=== PATIENT | male | born 1995 | race African-American/Black ===

== ENCOUNTER 2021-01-05 19:09 | Emergency (ER) | payer SELFPAY ==
--- NOTE | 2021-01-05 20:15 | EDPHYS ---
Physician Documentation [facility] Name: Patel Gray Age: 25 yrs Sex: Male : 1995 Arrival Date: 01/05/2021 Time: 19:12 Bed 15 Private MD: ED Physician Constantine Bueno HPI: 01/05 19:46 This 25 yrs old Black Male presents to ER via Ambulatory with complaints of Ear Pain, pm1 Decreasd hearing. 19:46 The patient presents with pain. The complaints affect the right ear. Onset: The pm1 symptoms/episode began/occurred 2 week(s) ago. Modifying factors: The symptoms are alleviated by nothing, the symptoms are aggravated by nothing. Associated signs and symptoms: Pertinent positives: decreased hearing, Pertinent negatives: fever. Severity of symptoms: in the emergency department the symptoms are unchanged. The patient has experienced a previous episode, many years ago. The patient has not recently seen a physician. Historical: - Allergies: 19:33 No Known Allergies; bb - Home Meds: 19:33 None [Active]; bb - PMHx: 19:33 ADHD; bb - PSHx: 19:33 hand surgery; bb - Immunization history:: Adult Immunizations up to date. - Social history:: Smoking status: Patient/guardian denies using tobacco, Stopped _ months ago 5. ROS: 19:46 Constitutional: Negative for fever, chills, and weight loss, Abdomen/GI: Negative for pm1 abdominal pain, nausea, vomiting, diarrhea, and constipation, Neuro: Negative for headache, weakness, numbness, tingling, and seizure. 19:46 Cardiovascular: Negative for chest pain, palpitations, and edema, Respiratory: Negative for shortness of breath, cough, wheezing, and pleuritic chest pain. 19:46 ENT: Positive for ear pain, Negative for sore throat. 19:46 All other systems are negative. Exam: 19:46 Constitutional: This is a well developed, well nourished patient who is awake, alert, pm1 and in no acute distress. Head/Face: Normocephalic, atraumatic. 19:46 Neck: Trachea midline, no thyromegaly or masses palpated, and no cervical lymphadenopathy. Supple, full range of motion without nuchal rigidity, or vertebral point tenderness. No Meningismus. 19:46 Back: No spinal tenderness. No costovertebral tenderness. Full range of motion. Skin: Warm, dry with normal turgor. Normal color with no rashes, no lesions, and no evidence of cellulitis. MS/ Extremity: Pulses equal, no cyanosis. Neurovascular intact. Full, normal range of motion. 19:46 Eyes: Exam is negative for acute changes, Extraocular movements: intact throughout, Conjunctiva: no acute changes, no injection, Sclera: icterus, is not appreciated. 19:46 ENT: External ear(s): are unremarkable, Ear canal(s): are normal, TM's: bulging, on the right, erythema, on the right, Examination of the other ear shows no obvious abnormality. 19:46 Cardiovascular: Rate: normal, Rhythm: regular, Pulses: no pulse deficits are appreciated. 19:46 Respiratory: Exam negative for acute changes, respiratory distress, shortness of breath, Breath sounds: are clear throughout. 19:46 Neuro: Exam negative for acute changes, Orientation: is normal, Mentation: is normal, Motor: is normal, moves all fours. Vital Signs: 19:31 BP 130 / 75; Pulse 100; Resp 16 S; Temp 9.6(O); Pulse Ox 97% on R/A; Weight 90.72 kg bb (R); Height 5 ft. 2 in. (157.48 cm) (R); Pain 7/10; 19:57 Temp 98.3(O); ca1 19:31 Body Mass Index 36.58 (90.72 kg, 157.48 cm) bb MDM: 19:39 Patient medically screened. pm1 20:13 Data reviewed: vital signs. Data interpreted: Pulse oximetry: on room air is 97 %. pm1 Interpretation: normal. Counseling: I had a detailed discussion with the patient and/or guardian regarding: the historical points, exam findings, and any diagnostic results supporting the discharge/admit diagnosis, the need for outpatient follow up, an ENT specialist, to return to the emergency department if symptoms worsen or persist or if there are any questions or concerns that arise at home. Administered Medications: 20:17 Drug: Rocephin (cefTRIAXone) 1 grams Route: IM; Site: left gluteus; ca1 21:06 Follow up: Response: No adverse reaction ca1 Disposition: 06/27 05:35 Co-signature as Attending Physician, Constantine Bueno MD. mh7 Disposition: 01/05/21 20:14 Discharged to Home. Impression: Otitis media, unspecified, right ear. - Condition is Stable. - Discharge Instructions: Otitis Media, Adult. - Prescriptions for Augmentin 875- 125 mg Oral Tablet - take 1 tablet by ORAL route every 12 hours for 10 days; 20 tablet. Diclofenac Sodium 75 mg Oral Tablet, Delayed Release (E.C.) - take 1 tablet by ORAL route 2 times per day As needed; 30 tablet. - Medication Reconciliation Form, Thank You Letter, Antibiotic Education, Prescription Opioid Use form. - Follow up: Emergency Department; When: As needed; Reason: Worsening of condition. Follow up: Private Physician; When: 2 - 3 days; Reason: Recheck today's complaints, Continuance of care, Re-evaluation by your physician. - Problem is new. - Symptoms have improved. Signatures: Radha Farley RN RN bb Александр Martinez NP DIRECTOR TRAFFIC AND PLANNING pm1 AcGemini worthington RN RN ca1 Constantine Bueno MD MD mh7 Corrections: (The following items were deleted from the chart) 01/05 21:06 20:14 01/05/2021 20:14 Discharged to Home. Impression: Otitis media, unspecified, right ca1 ear. Condition is Stable. Forms are Medication Reconciliation Form, Thank You Letter, Antibiotic Education, Prescription Opioid Use. Follow up: Emergency Department; When: As needed; Reason: Worsening of condition. Follow up: Private Physician; When: 2 - 3 days; Reason: Recheck today's complaints, Continuance of care, Re-evaluation by your physician. Problem is new. Symptoms have improved. pm1
--- NOTE | 2021-01-05 20:15 | ER ---
Nurse's Notes [facility] Name: Patel Gray Age: 25 yrs Sex: Male : 1995 Arrival Date: 01/05/2021 Time: 19:12 Bed 15 Private MD: Diagnosis: Otitis media, unspecified, right ear Presentation: 01/05 19:31 Chief complaint: Patient states: he has had an ear ache with decreased hearing and bb sharp pain to right ear x 2 weeks. Coronavirus screen: At this time, the client does not indicate any symptoms associated with coronavirus-19. Ebola Screen: No symptoms or risks identified at this time. Initial Sepsis Screen: Does the patient meet any 2 criteria? No. Patient's initial sepsis screen is negative. Does the patient have a suspected source of infection? No. Patient's initial sepsis screen is negative. Risk Assessment: Do you want to hurt yourself or someone else? Patient reports no desire to harm self or others. Onset of symptoms was December 2020. 19:31 Method Of Arrival: Ambulatory bb 19:31 Acuity: SAMY 4 bb Historical: - Allergies: 19:33 No Known Allergies; bb - Home Meds: 19:33 None [Active]; bb - PMHx: 19:33 ADHD; bb - PSHx: 19:33 hand surgery; bb - Immunization history:: Adult Immunizations up to date. - Social history:: Smoking status: Patient/guardian denies using tobacco, Stopped _ months ago 5. Screenin:50 Abuse screen: Denies threats or abuse. Denies injuries from another. Nutritional ca1 screening: No deficits noted. Tuberculosis screening: No symptoms or risk factors identified. Fall Risk None identified. Assessment: 19:50 General: Appears in no apparent distress. comfortable, Behavior is calm, cooperative, ca1 appropriate for age. Pain: Complains of pain in right ear Pain currently is 7 out of 10 on a pain scale. Pain began 2 weeks. Neuro: Level of Consciousness is awake, alert, obeys commands, Oriented to person, place, time, situation. EENT: Tympanic membrane not visualized right ear Ear canal clear on left ear and right ear. Derm: Skin is intact, is healthy with good turgor, Skin is pink, warm \T\ dry. Musculoskeletal: Circulation, motion, and sensation intact. Capillary refill < 3 seconds. 20:17 Reassessment: Kept for obs post IM ABX. ca1 21:05 Reassessment: Patient appears in no apparent distress at this time. Patient is alert, ca1 oriented x 3, equal unlabored respirations, skin warm/dry/pink. Vital Signs: 19:31 BP 130 / 75; Pulse 100; Resp 16 S; Temp 9.6(O); Pulse Ox 97% on R/A; Weight 90.72 kg bb (R); Height 5 ft. 2 in. (157.48 cm) (R); Pain 7/10; 19:57 Temp 98.3(O); ca1 19:31 Body Mass Index 36.58 (90.72 kg, 157.48 cm) bb ED Course: 19:12 Patient arrived in ED. as 19:33 Triage completed. bb 19:33 Arm band placed on Patient placed in an exam room, on a stretcher, on pulse oximetry. bb 19:35 Александр Martinez [facility]. pm1 19:35 Constantine Bueno MD is Attending Physician. pm1 19:42 Gemini Salgado RN is Primary Nurse. ca1 19:50 Patient has correct armband on for positive identification. Bed in low position. Call ca1 light in reach. Side rails up X 1. Pulse ox on. NIBP on. Warm blanket given. 21:06 No provider procedures requiring assistance completed. Patient did not have IV access ca1 during this emergency room visit. Administered Medications: 20:17 Drug: Rocephin (cefTRIAXone) 1 grams Route: IM; Site: left gluteus; ca1 21:06 Follow up: Response: No adverse reaction ca1 Outcome: 20:14 Discharge ordered by . pm1 21:06 Discharged to home ambulatory. ca1 21:06 Condition: stable 21:06 Discharge instructions given to patient, Instructed on discharge instructions, follow up and referral plans. medication usage, Demonstrated understanding of instructions, follow-up care, medications, Prescriptions given X 2. 21:06 Patient left the ED. ca1 Signatures: Keesha Whitfield Brenda, RN RN bb Александр Martinez, [employer] MET[employer] BENDING MACHINE OPERATOR pm1 Gemini Salgado RN RN ca1
[2021-01-05] MEDS ORDERED: CEFTRIAXONE 1000 MG/VIAL ONE (20:36)
[2021-01-05] MEDS ORDERED: WATER FOR INJ,STERILE 10 ML ONE (20:36)
[2021-01-05 21:12] VITALS: BP 130/75; O2SAT 97
[2021-01-05 21:13] VITALS: TEMP 98.3
== END 2021-01-05 21:06 | disposition home or self-care (01) ==
LOC: ER 19:09
DX: H66.91 Otitis media, unspecified, right ear (principal)
CPT/HCPCS: 96372; 99283

== ENCOUNTER 2021-05-06 16:00 | Emergency (ER) | payer SELFPAY ==
--- NOTE | 2021-05-06 16:31 | EDPHYS ---
Physician Documentation [facility] Name: Patel Gray Age: 25 yrs Sex: Male : 1995 Arrival Date: 05/06/2021 Time: 16:01 Bed 12 Private MD: ED Physician Dayanara Alejo HPI: 05/06 16:24 This 25 yrs old Black Male presents to ER via Ambulatory with complaints of Low Back jmm Pain. 16:24 The patient presents with pain that is acute. The symptoms are located in the low back. jmm The pain does not radiate. Onset: The symptoms/episode began/occurred acutely, 3 day(s) ago. Modifying factors: The patient symptoms are alleviated by nothing, the patient symptoms are aggravated by movement. Associated signs and symptoms: Pertinent negatives: fever. This is a 25 year old male with a history of adhd that presents to the ED with complaints of right lower back pain beginning after bending at work 3 days ago. Denies fever, radiation of pain, bowel or bladder problems. . Historical: - Allergies: 16:07 No Known Allergies; aa5 - PMHx: 16:07 adhd; aa5 - PSHx: 16:07 left hand; aa5 - Immunization history:: Client reports having NOT received the Covid vaccine. - Social history:: Smoking status: Patient reports the use of cigarette tobacco products, denies chronic smoking, but will smoke occasionally. ROS: 16:24 Constitutional: Negative for fever, chills, and weight loss, Cardiovascular: Negative jmm for chest pain, palpitations, and edema, Respiratory: Negative for shortness of breath, cough, wheezing, and pleuritic chest pain. 16:24 Back: Positive for pain with movement. 16:24 All other systems are negative. Exam: 16:24 Constitutional: This is a well developed, well nourished patient who is awake, alert, jmm and in no acute distress. Head/Face: atraumatic. Eyes: EOMI, no conjunctival erythema appreciated ENT: Moist Mucus Membranes Neck: Trachea midline, Supple Chest/axilla: Normal chest wall appearance and motion. Cardiovascular: Regular rate and rhythm. No edema appreciated Respiratory: Normal respirations, no respiratory distress appreciated Abdomen/GI: Non distended, soft 16:24 Skin: General appearance color normal MS/ Extremity: Moves all extremities, no obvious deformities appreciated, no edema noted to the lower extremities Neuro: Awake and alert, normal gait Psych: Behavior is normal, Mood is normal, Patient is cooperative and pleasant 16:24 Back: pain, that is mild, of the right low back, vert tenderness. Vital Signs: 16:05 BP 121 / 56; Pulse 99; Resp 18 S; Temp 97.8(TE); Pulse Ox 96% on R/A; Weight 99.79 kg aa5 (R); Height 5 ft. 2 in. (157.48 cm) (R); 16:05 Body Mass Index 40.24 (99.79 kg, 157.48 cm) aa5 MDM: 16:24 Patient medically screened. [facility] 16:28 Data reviewed: vital signs, nurses notes. Counseling: I had a detailed discussion with quan the patient and/or guardian regarding: the historical points, exam findings, and any diagnostic results supporting the discharge/admit diagnosis, the need for outpatient follow up, to return to the emergency department if symptoms worsen or persist or if there are any questions or concerns that arise at home. ED course: Patient is alert and non toxic in appearance in the ED. I do not suspect calculus, cord compression, pyelonephritis. Most likely muscl strain. Advised to follow up with pcp and otherwise given strict return precautions. Patient understood and agrees with the plan of care. . Administered Medications: 16:38 Drug: Ibuprofen 800 mg Route: PO; vg1 16:48 Follow up: Response: No adverse reaction ch5 Disposition: 05/07 08:57 Co-signature as Attending Physician, Dayanara Alejo MD I agree with the assessment and sp3 plan of care. Disposition Summary: 05/06/21 16:30 Discharge Ordered Location: Home [facility] Condition: Stable [facility] Diagnosis - Low back pain [facility] Followup: [facility] - With: Private Physician - When: 2 - 3 days - Reason: Recheck today's complaints, Continuance of care, Re-evaluation by your physician Discharge Instructions: - Discharge Summary Sheet [facility] - Acute Back Pain, Adult jm - Lumbar Strain [facility] Forms: - Medication Reconciliation Form [facility] - Thank You Letter [facility] - Antibiotic Education [facility] - Prescription Opioid Use [facility] - Work release form jt3 Prescriptions: - Ibuprofen 800 mg Oral Tablet - take 1 tablet by ORAL route every 8 hours As needed take with food; 30 tablet; [facility] Refills: 0, Product Selection Permitted - orphenadrine citrate 100 mg Oral Tablet Sustained Release - take 1 tablet by ORAL route 2 times per day As needed; 20 tablet; Refills: 0, quan Product Selection Permitted Signatures: Jimmy Sorto PA PA jmm Calderon, Audri, RN RN aa5 Bettina Childers RN RN vg1 Dayanara Alejo MD MD sp3 Aidan Pantoja RN ch5
--- NOTE | 2021-05-06 16:31 | ER ---
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 Coronavirus screen: At this time, the client does not indicate any symptoms associated with coronavirus-19. Ebola Screen: No symptoms or risks identified at this time. Initial Sepsis Screen: Does the patient meet any 2 criteria? HR > 90 bpm. Does the patient have a suspected source of infection? No. Patient's initial sepsis screen is negative. Risk Assessment: Do you want to hurt yourself or someone else? Patient reports no desire to harm self or others. Onset of symptoms was April 2021. 16:05 Acuity: SAMY 4 aa5 16:05 Method Of Arrival: Ambulatory aa5 Historical: - Allergies: 16:07 No Known Allergies; aa5 - PMHx: 16:07 adhd; aa5 - PSHx: 16:07 left hand; aa5 - Immunization history:: Client reports having NOT received the Covid vaccine. - Social history:: Smoking status: Patient reports the use of cigarette tobacco products, denies chronic smoking, but will smoke occasionally. Screenin:12 Abuse screen: Denies threats or abuse. Denies injuries from another. Nutritional jt3 screening: No deficits noted. Tuberculosis screening: No symptoms or risk factors identified. Fall Risk None identified. Assessment: 16:12 General: Appears in no apparent distress. Pain: Complains of pain in back Pain jt3 currently is 4 out of 10 on a pain scale. Pain began 2-3 days ago. Musculoskeletal: Reports pain in back Pt. reports lower back pain for 3 days. Pt denies numbness/tingling in arms and legs. No loss of bowel or bladder function. Alert and oriented x4. Pt. lays scaffling for a living. Pt. states "I felt a pop when I was working.". Vital Signs: 16:05 BP 121 / 56; Pulse 99; Resp 18 S; Temp 97.8(TE); Pulse Ox 96% on R/A; Weight 99.79 kg aa5 (R); Height 5 ft. 2 in. (157.48 cm) (R); 16:05 Body Mass Index 40.24 (99.79 kg, 157.48 cm) [facility] ED Course: 16:01 Patient arrived in ED. as 16:05 Jimmy Sorto PA is PHCP. [facility] 16:05 Dayanara Alejo MD is Attending Physician. [facility] 16:05 Arm band placed on. aa 16:07 Triage completed. aa5 16:09 John Crockett, RN is Primary Nurse. jt3 16:12 Patient has correct armband on for positive identification. Call light in reach. jt3 16:12 No provider procedures requiring assistance completed. jt3 Administered Medications: 16:38 Drug: Ibuprofen 800 mg Route: PO; vg1 16:48 Follow up: Response: No adverse reaction [facility] Outcome: 16:30 Discharge ordered by . [facility] 16:49 Discharged to home [facility] 16:49 Condition: good 16:49 Discharge instructions given to patient, Instructed on list of occupational health locations. 16:49 Patient left the ED. [facility] Signatures: Jimmy Sorto PA PA jmm Martinez, Amelia as Calderon, Audri, RN RN 5 Bettina Childers, TEJAS RN 1 Aidan Pantoja, TEJAS RN 5 John Crockett, TEJAS RN jt3
[2021-05-06] MEDS ORDERED: IBUPROFEN 400 MG TAB ONE (17:02)
[2021-05-06 17:06] VITALS: BP 121/56; TEMP 97.8; O2SAT 96
== END 2021-05-06 16:49 | disposition home or self-care (01) ==
LOC: ER 16:00
DX: M54.50 Low back pain, unspecified (principal); F17.210 Nicotine dependence, cigarettes, uncomplicated
CPT/HCPCS: 99283

== ENCOUNTER 2022-07-21 21:07 | Emergency (ER) | payer OTHER ==
--- OUTSIDE RECORDS SUMMARY | 2022-07-21 21:23 | XMS REPORT | Continuity of Care Document ---
:1995 Author Organization [facility] t Address [address] [place] [address] Care Team Providers Name Role Phone Tika Brennan MD Primary Care Physician [phone] GRETCHEN ALICIA Attending Clinician Unavailable LAB90 Attending Clinician Unavailable Grecthen Daniel Attending Clinician TIKA BRENNAN Attending Clinician Unavailable Payers Payer Name Policy Type Policy Number Effective Date Expiration Date S [place] [id number] 2021 00:00:00 [facility] Problems Condition Condition Condition Status Onset Resolution Last Treating Co mments Source Name Details Category Date Date Treatment Clinician Date No known No known Disease Kelse y active active ybkatelyn problems problems Allergies, Adverse Reactions, Alerts This patient has no known allergies or adverse reactions. Social History Social Habit Start Date Stop Date Quantity Comments Source History of tobacco Cigarette Smoker Sarah Carter use Cigarettes smoked 2021-08-08 2021-08-08 Sarah Carter current (pack per 00:00:00 00:00:00 day) - Reported Sex [birth year] Sarah hamm 00:00:00 00:00:00 Smoking Status Start Date Stop Date Source Smokes tobacco daily 2021-08-08 00:00:00 Sarah Carter Medications Ordered Filled Start Stop Current Ordering Indication Dosage Frequency Signature Comments Components Source Medication Medication Date Date Medication? Clinician (SIG) Name Name Propranolol Yes [id number] 20mg Take 1 Sarah HCl 20 MG 1-27 tablet (20 Seyb old oral Tablet 00:00: mg total) 00 by mouth 3 times daily Fluticasone Yes [id number] 2{puff} Inhale 2 Sarah -Salmeterol 1-27 [address]uffs [address] Se ybold (Advair 00:00: the lungs HFA) 45-21 00 2 times MCG/ACT daily inhalation Aerosol Bupropion Yes [id number] 150mg Take 1 Sarah HCL XL 150 1-27 tablet Seybold MG OR TB24 00:00: (150 mg 00 total) by mouth daily Azithromyci 2021- No [id number] Take 2 Sarah n 250 MG 1-27 - tablets by Seyb old oral Tablet 00:00: 05:59 mouth on 00 :00 day 1 then 1 tablet by mouth daily for 4 days thereafter . Immunizations Ordered Immunization Filled Immunization Date Status Commen Source Name Name HPV 4 (Human 2014-10-10 Completed Sarah wagoner Papillomavirus) 00:00:00 Meningococcal 2014-10-10 Completed Sarah zepeda Vaccine- 00:00:00 Conjugate(Menactra) HEPATITIS A- 2012-08-16 Completed Sarah wagoner PEDI/ADOL 00:00:00 HEPATITIS A- 2011-02-24 Completed Sarah wagoner PEDI/ADOL 00:00:00 Meningococcal 2010-02-20 Completed Sarah zepeda Vaccine- 00:00:00 Conjugate(Menactra) Tdap- (Boostrix, 2010-02-20 Completed Sarah naik Adacel) 00:00:00 Varicella Vaccine 2010-02-20 Completed Sarah Carter 00:00:00 DTaP Unspecified 2002-02-24 Completed Sarah naik 00:00:00 IPV- Inactivated 2002-02-24 Completed Sarah naik Polio Vaccine 00:00:00 Varicella Vaccine 2002-02-24 Completed Sarah Carter 00:00:00 MMR- Measles, Mumps, 2002-02-24 Arthur Carter Rubella 00:00:00 DTaP Unspecified 1999-10-09 Completed Sarah naik 00:00:00 HIB- Haemophilus 1999-10-09 Completed Sarah naik Influenzae Type B 00:00:00 DTaP Unspecified 1997-10-03 Completed Sarah ayalaborizwana 00:00:00 Hepatitis B, 1997-10-03 Completed Sarah wagoner Adolescent Or 00:00:00 Pediatric Hib, unspecified 1997-10-03 Completed Sarah ayalaborizwana formulation 00:00:00 IPV- Inactivated 1997-10-03 Completed Sarah naik Polio Vaccine 00:00:00 DPT/HIB 1997-02-14 Completed Sarah Ferrellold 00:00:00 Hepatitis B, 1997-02-14 Completed Sarah wagoner Adolescent Or 00:00:00 Pediatric OPV- Oral Polio 1997-02-14 Completed Sarah Quintana ybkatelyn Vaccine 00:00:00 Hepatitis B, 1995 Completed Sarah Ferrello rizwana Adolescent Or 00:00:00 Pediatric Vital Signs Vital Name Observation Time Observation Value Comments Source Systolic blood pressure 2021-08-08 16:30:00 126 mm[Hg] Sarah Ghassanold Diastolic blood 2021-08-08 16:30:00 86 mm[Hg] Kelse y Seybold pressure Heart rate 2021-08-08 16:30:00 102 /min Sarah Vicky gumaro Body temperature 2021-08-08 16:30:00 36.72 Iwona Daisy ayala Seybold Respiratory rate 2021-08-08 16:30:00 17 /min Daisy jamie Quintanaybold Body height 2021-08-08 16:30:00 157.5 cm Sarah Vicky gumaro Body weight 2021-08-08 16:30:00 103.239 kg Sarah Vicky gumaro BMI 2021-08-08 16:30:00 41.63 kg/m2 Sarah naik Procedures Procedure Date / Time Performed Performing Clinician [facility] e LIPID PANEL 2021-08-08 17:47:00 Gretchen Alicia CMP14+CBC/D/PLT+TSH W/RFLX 2021-08-08 17:47:00 Gretchen Alicia Encounters Start End Encounter Admission Attending Care Care Encounter Source Date/Time Date/Time Type Type Clinicians Facility Department ID 2021-08-14 2021-08-14 Outpatient SARAH ALICIA [id number] Sarah 00:00:00 00:00:00 GRETCHEN Seybol d 2021-08-11 2021-08-11 Outpatient SARAH ALICIA [id number] Sarah 00:00:00 00:00:00 GRETCHEN Seybol d 2021-08-08 2021-08-08 Outpatient LAB90 SARAH NICHOLAS [id number] Sarah 11:40:00 11:40:00 Seybol d 2021-08-08 2021-08-08 Office Manoj Alicia [id number] Sarah 10:00:00 11:00:00 Visit Gretchen Hodges [id number] Se hamm [id number] 2021-08-06 2021-08-06 Outpatient SARAH BRENNAN [id number] Sarah 00:00:00 00:00:00 TIKA flannery Results Test Description Test Time Test Comments Results Result Comments Source CMP14+CBC/D/PLT+TSH W/RFLX 2021-08-09 15:20:00 Test Item Value Reference Range Interpretation Comme nts GLUCOSE, SERUM (test code 91 mg/dL 65-99 = 2345-7) BUN (test code = 3094-0) 12 mg/dL 20 CREATININE, SERUM (test 0.83 mg/dL 0.76-1.27 code = 2160-0) EGFR IF NONAFRICN AM (test 123 mL/min/1.73 >59 code = 50152-5) EGFR IF AFRICN AM (test 142 mL/min/1.73 >59 * *In accordance with code = 62466-5) recommendati ons from the NKF-ASN Task fo rce, ?[facility] is in the process of updating its eGFR calculation to the ?2020 CKD-EPI creatin ine equation that e stimates kidney function ?without a race variable. BUN/CREATININE RATIO (test 04-01 code = 3097-3) SODIUM, SERUM (test code = 139 mmol/L 151-876 9314-2) POTASSIUM, SERUM (test 4.9 mmol/L 3.5-5.2 code = 2823-3) CHLORIDE, SERUM (test code 101 mmol/L 96-106 = 5-0) CARBON DIOXIDE, TOTAL 23 mmol/L 20-29 (test code = 2027-9) CALCIUM, SERUM (test code 9.5 mg/dL 8.7-10.2 = 52917-0) PROTEIN, TOTAL, SERUM 8.1 g/dL 6.0-8.5 (test code = 2885-2) ALBUMIN, SERUM (test code 4.5 g/dL 4.1-5.2 = 1751-7) GLOBULIN, TOTAL (test code 3.6 g/dL 1.5-4.5 = 42532-6) A/G RATIO (test code = 1.2-2.2 175-0) BILIRUBIN, TOTAL (test <0.2 0.0-1.2 code = 1974-) ALKALINE PHOSPHATASE, See_Comment [Auto mated message] The SERUM (test code = 6768-6) s ystem which generated this result tra nsmitted reference range : 44 - 121 IU/L. The refer ence range was not used to interpret this result as normal/abnormal . AST (SGOT) (test code = See_Comment [Au tomated message] The 1920-02) system which ge nerated this result tra nsmitted reference range : 0 - 40 IU/L. The refer ence range was not used to interpret this result as normal/abnormal . ALT (SGPT) (test code = See_Comment [Au tomated message] The 1741-12) system which ge nerated this result tra nsmitted reference range : 0 - 44 IU/L. The refer ence range was not used to interpret this result as normal/abnormal . TSH (test code = 68213-6) See_Comment [ Automated message] The system which ge nerated this result tra nsmitted reference range : 0.450 - 4.500 uIU/mL. T he reference range was not used to interpr et this result as thad l/abnormal. WHITE BLOOD CELL (WBC) See_Comment H [Aut omated message] The COUNT (test code = 6690-2) s ystem which generated this result tra nsmitted reference range : 3.4 - 10.8 x10E3/uL. The reference range was not used to interpr et this result as thad l/abnormal. RED BLOOD CELL (RBC) COUNT See_Comment [Automated message] The (test code = 789-8) system w [employer] generated this result tra nsmitted reference range : 4.14 - 5.80 x10E6/uL. The reference range was not used to interpr et this result as thad l/abnormal. HEMOGLOBIN (test code = 13.8 g/dL 13.0-17.7 718-7) HEMATOCRIT (test code = 43.7 % 37.5-51.0 4544-3) MCV (test code = 787-2) 79 fL 79-97 MCH (test code = 785-6) 24.8 pg 26.6-33.0 L MCHC (test code = 786-4) 31.6 g/dL 31.5-35.7 RDW (test code = 788-0) 14.2 % 11.6-15.4 PLATELETS (test code = See_Comment H [Aut omated message] The 777-3) system which ge nerated this result tra nsmitted reference range : 150 - 450 x10E3/uL. The r eference range was not u sed to interpret this result as normal/abnormal . NEUTROPHILS (test code = 58 % Not Estab. 770-8) LYMPHS (test code = 736-9) 28 % Not Estab. MONOCYTES (test code = 10 % Not Estab. 5905-5) EOS (test code = 713-8) 3 % Not Estab. BASOS (test code = 706-2) 1 % Not Estab. NEUTROPHILS (ABSOLUTE) See_Comment [Aut omated message] The (test code = 751-8) system [facility] generated this result tra nsmitted reference range : 1.4 - 7.0 x10E3/uL. The r eference range was not u sed to interpret this result as normal/abnormal . LYMPHS (ABSOLUTE) (test See_Comment H [Au tomated message] The code = 731-0) system which g enerated this result tra nsmitted reference range : 0.7 - 3.1 x10E3/uL. The r eference range was not u sed to interpret this result as normal/abnormal . MONOCYTES(ABSOLUTE) (test See_Comment H [ Automated message] The code = 742-7) system which g enerated this result tra nsmitted reference range : 0.1 - 0.9 x10E3/uL. The r eference range was not u sed to interpret this result as normal/abnormal . EOS (ABSOLUTE) (test code See_Comment [ Automated message] The = 711-2) system which ge nerated this result tra nsmitted reference range : 0.0 - 0.4 x10E3/uL. The r eference range was not u sed to interpret this result as normal/abnormal . BASO (ABSOLUTE) (test code See_Comment [Automated message] The = 704-7) system which ge nerated this result tra nsmitted reference range : 0.0 - 0.2 x10E3/uL. The r eference range was not u sed to interpret this result as normal/abnormal . IMMATURE GRANULOCYTES 0 % Not Estab. (test code = 91873-2) IMMATURE GRANS (ABS) (test See_Comment [Automated message] The code = 30614-3) system which generated this result tra nsmitted reference range : 0.0 - 0.1 x10E3/uL. The r eference range was not u sed to interpret this result as normal/abnormal . CHRIS (test code = CHRIS) [facility] results reported in Eastern Time. [facility] Clinical Information:SRC:Blo od, venous*Venipunc ture ? [facility] Source of Specimen:Blood, venous*Venipunc Lab Interpretation (test Abnormal code = 64951-4) Sarah CarterLIPID [id number] 15:20:00 Test Item Value Reference Range Interpretation Comments CHOLESTEROL, TOTAL (test 184 mg/dL 100-199 code = 2093-3) TRIGLYCERIDES (test code = 104 mg/dL 0-149 2571-8) HDL CHOLESTEROL (test code 46 mg/dL >39 = 2085-9) VLDL CHOLESTEROL CARMENCITA (test 19 mg/dL 5-40 code = 26121-8) LDL CHOL CALC (NIH) (test 119 mg/dL 0-99 H code = 32593-3) CHRIS (test code = CHRIS) [facility] results reported in Eastern Time. [facility] Clinical Information:[facility] Source of Specimen:Blood, venous*Venipunc Lab Interpretation (test Abnormal code = 17402-1) Sarah Carter
--- NOTE | 2022-07-21 21:45 | EDPHYS ---
Physician Documentation [facility] Name: Patel Gray Age: 26 yrs Sex: Male : 1995 Arrival Date: 07/21/2022 Time: 21:11 Bed 9 Private MD: ED Physician Isacc Rose HPI: 07/21 21:51 This 26 yrs old Black Male presents to ER via Ambulatory with complaints of Eye Problem.rt 21:51 Onset: The symptoms/episode began/occurred 1 week(s) ago. Duration: the symptoms are rt intermittent. Aggravated by nothing. Alleviated by nothing. Presents to the ED with intermittent itching and dryness on his eyes for about 1 week. It alternates from one eye to the other. It is currently in the right eye. The patient states that he took 1 antibiotic pill from his stepson. He says it did not improve his symptoms. He denies other acute complaints at this time. Symptoms are mild in severity, no other aggravating or alleviating factors.. Historical: - Allergies: 21:23 No Known Allergies; tw5 - Home Meds: 21:23 None [Active]; tw5 - PMHx: 21:23 adhd; tw5 - PSHx: 21:23 left hand; tw5 - Immunization history:: Flu vaccine is not up to date. - Social history:: Smoking status: Reported history of juuling and/or vaping. - Family history:: not pertinent. ROS: 21:51 Constitutional: Negative for fever, chills, and weight loss, ENT: Negative for injury, rt pain, and discharge, Cardiovascular: Negative for chest pain, palpitations, and edema, Respiratory: Negative for shortness of breath, cough, wheezing, and pleuritic chest pain, Abdomen/GI: Negative for abdominal pain, nausea, vomiting, diarrhea, and constipation, Skin: Negative for injury, rash, and discoloration, Neuro: Negative for headache, weakness, numbness, tingling, and seizure, Psych: Negative for depression, anxiety, suicide ideation, homicidal ideation, and hallucinations. 21:51 Eyes: Positive for itching, dry eye. Exam: 21:51 Constitutional: This is a well developed, well nourished patient who is awake, alert, rt and in no acute distress. Head/Face: Normocephalic, atraumatic. ENT: Nares patent. No nasal discharge, no septal abnormalities noted. Tympanic membranes are normal and external auditory canals are clear. Oropharynx with no redness, swelling, or masses, exudates, or evidence of obstruction, uvula midline. Mucous membranes moist. Chest/axilla: Normal chest wall appearance and motion. Nontender with no deformity. No lesions are appreciated. Cardiovascular: Regular rate and rhythm with a normal S1 and S2. No gallops, murmurs, or rubs. Normal PMI, no JVD. No pulse deficits. Respiratory: Lungs have equal breath sounds bilaterally, clear to auscultation and percussion. No rales, rhonchi or wheezes noted. No increased work of breathing, no retractions or nasal flaring. Abdomen/GI: Soft, non-tender, with normal bowel sounds. No distension or tympany. No guarding or rebound. No evidence of tenderness throughout. Skin: Warm, dry with normal turgor. Normal color with no rashes, no lesions, and no evidence of cellulitis. MS/ Extremity: Pulses equal, no cyanosis. Neurovascular intact. Full, normal range of motion. Neuro: Awake and alert, GCS 15, oriented to person, place, time, and situation. Cranial nerves II-XII grossly intact. Motor strength 5/5 in all extremities. Sensory grossly intact. Cerebellar exam normal. Normal gait. Psych: Awake, alert, with orientation to person, place and time. Behavior, mood, and affect are within normal limits. 21:51 Eyes: Extraocular muscles are intact, there is no conjunctival injection, no discharge noted, pupils are equally round and reactive to light.. 21:51 ENT: Vital Signs: 21:20 BP 135 / 85; Pulse 107; Resp 18; Temp 98.5; Pulse Ox 97% ; Weight 104.33 kg; Height 5 tw5 ft. 2 in. (157.48 cm); Pain 0/10; 21:39 Pulse 98; Resp 16; Pulse Ox 100% on R/A; Pain 0/10; mb9 21:20 Body Mass Index 42.07 (104.33 kg, 157.48 cm) tw5 MDM: 21:32 Patient medically screened. rt 21:51 Differential diagnosis: infectious conjunctivitis, UV keratitis, keratoconjunctivitis rt sicca. Data reviewed: vital signs, nurses notes. I considered the following discharge prescriptions or medication management in the emergency department Antibiotics: At this time antibiotics are not recommended. Test considered but Not performed: Labs: . ED course: Presents to the ED with dryness to the eyes. I see no evidence of infectious conjunctivitis. I do not believe that antibiotics are indicated at this time. I discussed lacrimal supplementation. Do not believe that further work-up is indicated at this time. Patient is stable for outpatient care, patient instructed follow-up with primary care. 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
--- NOTE | 2022-07-21 21:45 | ER ---
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 It started off in my left eye and now it is in my right eye. I had been using my girlfriends medication for pink eye, but it stopped working.". Coronavirus screen: Vaccine status: Patient reports being unvaccinated. Ebola Screen: Patient negative for fever greater than or equal to 101.5 degrees Fahrenheit, and additional compatible Ebola Virus Disease symptoms Patient denies exposure to infectious person. Patient denies travel to an Ebola-affected area in the 21 days before illness onset. Initial Sepsis Screen: Does the patient meet any 2 criteria? HR > 90 bpm. Does the patient have a suspected source of infection? Yes: Other: red itchy eyes. Risk Assessment: Do you want to hurt yourself or someone else? Patient reports no desire to harm self or others. Onset of symptoms was July 14, 2021. 21:20 Method Of Arrival: Ambulatory tw5 21:20 Acuity: SAMY 4 tw5 Triage Assessment: 21:23 General: Appears in no apparent distress. Behavior is calm, cooperative, appropriate tw5 for age. Pain: Denies pain. Historical: - Allergies: 21:23 No Known Allergies; tw5 - Home Meds: 21:23 None [Active]; tw5 - PMHx: 21:23 adhd; tw5 - PSHx: 21:23 left hand; tw5 - Immunization history:: Flu vaccine is not up to date. - Social history:: Smoking status: Reported history of juuling and/or vaping. - Family history:: not pertinent. Screenin:24 [facility] ED Fall Risk Assessment (Adult) History of falling in the last 3 months, mb9 including since admission No falls in past 3 months (0 pts) Confusion or Disorientation No (0 pts) Intoxicated or Sedated No (0 pts) Impaired Gait No (0 pts) Mobility Assist Device Used No (0 pt) Altered Elimination No (0 pt) Score/Fall Risk Level 0 - 2 = Low Risk Oriented to surroundings, Maintained a safe environment, Educated pt \\T\\ family on fall prevention, incl call for assistance when getting out of bed. Abuse screen: Denies threats or abuse. Nutritional screening: No deficits noted. Tuberculosis screening: No symptoms or risk factors identified. Assessment: 21:37 General: Appears in no apparent distress. Behavior is calm, cooperative, appropriate mb9 for age. Pain: Denies pain. Neuro: Level of Consciousness is awake, alert, obeys commands. Cardiovascular: Patient's skin is warm and dry. Respiratory: Airway is patent. GI: No signs and/or symptoms were reported involving the gastrointestinal system. : No signs and/or symptoms were reported regarding the genitourinary system. EENT: Reports "I have discharge coming from my right eye when I wake up. It feels itchy and makes me want to claw my eye out. I've been putting eye drops in and it helps". 21:38 Derm: Skin is pink, warm \\T\\ dry. Musculoskeletal: Range of motion: intact in all mb9 extremities. Vital Signs: 21:20 BP 135 / 85; Pulse 107; Resp 18; Temp 98.5; Pulse Ox 97% ; Weight 104.33 kg; Height 5 tw5 ft. 2 in. (157.48 cm); Pain 0/10; 21:39 Pulse 98; Resp 16; Pulse Ox 100% on R/A; Pain 0/10; mb9 21:20 Body Mass Index 42.07 (104.33 kg, 157.48 cm) tw5 ED Course: 21:11 Patient arrived in ED. mr 21:22 Triage completed. tw5 21:23 Arm band placed on. tw5 21:24 Percious Shah RN is Primary Nurse. mb9 21:25 Bed in low position. Call light in reach. Side rails up X 1. Client placed on mb9 continuous cardiac and pulse oximetry monitoring. NIBP monitoring applied. 21:30 Isacc Rose MD is Attending Physician. rt 21:39 No provider procedures requiring assistance completed. Patient did not have IV access mb9 during this emergency room visit. Administered Medications: No medications were administered Medication: 21:24 VIS not applicable for this client. mb9 Outcome: 21:44 Discharge ordered by . rt 21:58 Discharged to home ambulatory. mb9 21:58 Condition: stable 21:58 Discharge instructions given to patient, Instructed on discharge instructions, Demonstrated understanding of instructions, follow-up care. 21:58 Patient left the ED. mb9 Signatures: Precious Glover Annamarie Tainy tw5 Precious Shah RN RN nano9 Isacc Rose MD MD rt Corrections: (The following items were deleted from the chart) 21:39 21:37 EENT: Reports trey mb9
[2022-07-21 22:16] VITALS: BP 135/85; TEMP 98.5
[2022-07-21 22:17] VITALS: O2SAT 100
== END 2022-07-21 21:58 | disposition home or self-care (01) ==
LOC: ER 21:07
DX: H16.221 Keratoconjunctivitis sicca, not specified as Sjogren's, right eye (principal)
CPT/HCPCS: 99281

== ENCOUNTER 2022-08-27 18:40 | Emergency (ER) | payer OTHER ==
--- OUTSIDE RECORDS SUMMARY | 2022-08-27 18:43 | XMS REPORT | Continuity of Care Document ---
:1995 Author Organization [facility] t Address [address] [place] [place] [address] Care Team Providers Name Role Phone Tika Brennan MD Primary Care Physician [phone] GRETCHEN ALICIA Attending Clinician Unavailable LAB90 Attending Clinician Unavailable Gretchen Daniel Attending Clinician TIKA BRENNAN Attending Clinician Unavailable Payers Payer Name Policy Type Policy Number Effective Date Expiration Date S estr[place] [address] [id number] 2021 00:00:00 [facility] Problems Condition Condition Condition Status Onset [...] Medication? Clinician (SIG) Name Name Propranolol Yes [id number] 20mg Take 1 Sarah HCl 20 MG 1-27 tablet (20 Seyb old oral Tablet 00:00: mg total) 00 by mouth 3 times daily Fluticasone Yes [id number] 2{puff} Inhale 2 Sarah -Salmeterol 1-27 puffs into Se ybold (Advair 00:00: the lungs HFA) 45-21 00 2 times MCG/ACT daily inhalation Aerosol Bupropion Yes [id number] 150mg Take 1 Sarah HCL XL 150 1-27 tablet Seybold MG OR TB24 00:00: (150 mg 00 total) by mouth daily Azithromyci 2021- No [id number] Take 2 Sarah n 250 MG 1-27 [...] Procedure Date / Time Performed Performing Clinician [facility] e LIPID PANEL 2021-08-08 17:47:00 Gretchen Alicia CMP14+CBC/D/PLT+TSH W/RFLX 2021-08-08 17:47:00 Gretchen Alicia Encounters Start End Encounter Admission Attending Care Care Encounter Source Date/Time Date/Time Type Type Clinicians Facility Department ID 2021-08-14 2021-08-14 Outpatient SARAH ALICIA [id number] Sarah 00:00:00 00:00:00 GRETCHEN Seybol d 2021-08-11 2021-08-11 Outpatient SARAH ALICIA [id number] Sarah 00:00:00 00:00:00 GRETCHEN Seybol d 2021-08-08 2021-08-08 Outpatient LAB90 SARAH NICHOLAS [id number] Sarah 11:40:00 11:40:00 Seybol d 2021-08-08 2021-08-08 Office Manoj Alicia [id number] Sarah 10:00:00 11:00:00 Visit Gretchen Hodges [id number] Se hamm [id number] 2021-08-06 2021-08-06 Outpatient SARAH BRENNAN [id number] Sarah 00:00:00 00:00:00 TIKA flannery Results [...] AM (test 123 mL/min/1.73 >59 code = 52804-2) EGFR IF AFRICN AM (test 142 mL/min/1.73 >59 * *In accordance with code = 43778-3) recommendati ons from the NKF-ASN Task fo rce, ?[facility] is in the process of updating its eGFR calculation to the ?2020 CKD-EPI creatin ine equation that e stimates kidney function ?without a race variable. BUN/CREATININE RATIO (test 04-01 code = 3097-3) SODIUM, SERUM (test code = 139 mmol/L 393-229 0884-2) POTASSIUM, SERUM (test 4.9 mmol/L 3.5-5.2 code = 2823-3) CHLORIDE, SERUM (test code 101 mmol/L 96-106 = 5-0) CARBON DIOXIDE, TOTAL 23 mmol/L 20-29 (test code = 2027-9) CALCIUM, SERUM (test code 9.5 mg/dL 8.7-10.2 = 66370-9) PROTEIN, TOTAL, SERUM 8.1 g/dL 6.0-8.5 (test code = 2885-2) ALBUMIN, SERUM (test code 4.5 g/dL 4.1-5.2 = 1751-7) GLOBULIN, TOTAL (test code 3.6 g/dL 1.5-4.5 = 08265-0) A/G RATIO (test code = 1.2-2.2 175-0) [...] as normal/abnormal . TSH (test code = 53907-8) See_Comment [ Automated message] The system which [...] The (test code = 789-8) system w [employer] generated this result tra nsmitted reference range [...] message] The (test code = 751-8) system GINKGOTREE generated this result tra nsmitted reference range [...] 0 % Not Estab. (test code = 59632-3) IMMATURE GRANS (ABS) (test See_Comment [Automated message] The code = 74831-2) system which generated this result tra nsmitted reference range : 0.0 - 0.1 x10E3/uL. The r eference range was not u sed to interpret this result as normal/abnormal . CHRIS (test code = CHRIS) [facility] results reported in Eastern Time. [facility] Clinical Information:SRC:Blo od, venous*Venipunc ture ? [facility] Source of Specimen:Blood, venous*Venipunc Lab Interpretation (test Abnormal code = 57033-0) Sarah CarterLIPID [id number] 15:20:00 Test Item Value Reference Range Interpretation Comments CHOLESTEROL, TOTAL (test 184 mg/dL 100-199 code = 2093-3) TRIGLYCERIDES (test code = 104 mg/dL 0-149 2571-8) HDL CHOLESTEROL (test code 46 mg/dL >39 = 2085-9) VLDL CHOLESTEROL CARMENCITA (test 19 mg/dL 5-40 code = 51017-4) LDL CHOL CALC (NIH) (test 119 mg/dL 0-99 H code = 31724-6) CHRIS (test code = CHRIS) [facility] results reported in Eastern Time. [facility] Clinical Information:[facility] Source of Specimen:Blood, venous*Venipunc Lab Interpretation (test Abnormal code = 01635-1) Sarah Carter
[2022-08-27 20:21] LABS: Absolute Lymphocytes (CBC) 3.9 K/uL (0.7-4.9); Hematocrit 36.7 % (39.6-49.0); Lymphocytes % 26.7 % (15.3-44.8); MCV 77.4 fL (80-100); MPV 7.2 fL (7.6-11.3); RBC Red Blood Cell Count 4.74 M/uL (4.33-5.43)
[2022-08-27 20:28] LABS: Protime INR 1.01
[2022-08-27 20:45] LABS: BUN Blood Urea Nitrogen 13 mg/dL (7-18); Bicarbonate 28 mmol/L (21-32); Glomerular Filtration Rate 103 ml/min (=/>90); Glucose Level 108 mg/dL (74-106); Sodium Level 136 mmol/L (136-145); Troponin High Sensitivity 6.5 pg/mL (<58.9)
[2022-08-27 20:46] LABS: Magnesium 2.3 mg/dL (1.6-2.4); NT PRO-BNP < 5 pg/mL (<125); Potassium 4.8 mmol/L (3.5-5.1)
[2022-08-27 21:12] LABS: SARS-CoV-2 Antigen Rapid Res Negative (Negative)
--- NOTE | 2022-08-27 21:19 | RAD REPORT ---
EXAM DESCRIPTION: RAD - Chest Single View - 08/27/2022 8:46 pm CLINICAL HISTORY: CHEST PAIN COMPARISON: No comparisons FINDINGS: Lines: None. Lungs: No evidence of edema or pneumonia. Pleural: No significant pleural effusions or pneumothorax. Cardiac: The heart size is within normal limits. Mediastinum: Within normal limits. Bones: No acute fractures. Other: None IMPRESSION: No acute cardiopulmonary disease.
--- NOTE | 2022-08-27 21:58 | RAD REPORT ---
EXAM DESCRIPTION: US - Extremity Venous Uni Ltd - 08/27/2022 9:33 pm CLINICAL HISTORY: Pain COMPARISON: None. TECHNIQUE: Real-time sonographic evaluation of the right lower extremity deep venous system was perf ormed. FINDINGS: Normal compressibility, flow augmentation, phasic flow and spontaneous flow is identified in the right lower extremity deep venous system. No intraluminal filling defects seen. IMPRESSION: No DVT in the right lower extremity.
[2022-08-27] MEDS ORDERED: KETOROLAC 30 MG/ML INJ ONE (22:02)
[2022-08-27] MEDS ORDERED: NA CHLORIDE 0.9% 1,000 ML ONE (22:02)
--- NOTE | 2022-08-28 00:14 | EDPHYS ---
Physician Documentation [facility] Name: Patel Gray Age: 26 yrs Sex: Male : 1995 Arrival Date: 08/27/2022 Time: 18:43 Bed 18 Private MD: ED Physician Doyle Ramey HPI: 08/27 20:15 This 26 yrs old Black Male presents to ER via Ambulatory with complaints of Chest Pain. cp 20:15 The patient or guardian reports chest pain that is located primarily in the mid and cp right side. 20:15 The pain does not radiate. Associated signs and symptoms: Pertinent positives: right cp lower leg pain, Pertinent negatives: abdominal pain, cough, diaphoresis, dizziness, lower extremity swelling, shortness of breath, syncope, vomiting. The chest pain is described as a pressure. Duration: The patient or guardian reports a single episode, that is still ongoing, but improving. Severity of pain: in the emergency department the pain has improved. 20:15 Modifying factors: the symptoms are aggravated by deep breath. cp Historical: - Allergies: 19:22 No Known Allergies; kd3 - Home Meds: 19:22 None [Active]; kd3 - PMHx: 19:22 adhd; kd3 - PSHx: 19:22 left hand; kd3 - Immunization history:: Adult Immunizations up to date. - Social history:: Smoking status: unknown. ROS: 20:20 Constitutional: Negative for body aches, chills, fever, poor PO intake. cp 20:20 Cardiovascular: Positive for chest pain, of the anterior aspect of right side of chest, cp Negative for edema, palpitations. 20:20 Respiratory: Negative for cough, shortness of breath, wheezing. 20:20 Abdomen/GI: Negative for abdominal pain, vomiting, diarrhea, constipation. 20:20 Eyes: Negative for injury, pain, redness, and discharge. cp 20:20 Neck: Negative for pain with movement, pain at rest, stiffness. cp 20:20 Back: Negative for injury or acute deformity, decreased range of motion. 20:20 Skin: Negative for cellulitis, rash. 20:20 Neuro: Negative for altered mental status, dizziness, headache, syncope, weakness. 20:20 All other systems are negative. Exam: 19:33 ECG was reviewed by the Attending Physician. cp 20:25 Constitutional: The patient appears in no acute distress, alert, awake, cp non-diaphoretic, non-toxic, well developed, well nourished, obese. 20:25 Head/Face: Normocephalic, atraumatic. cp 20:25 Eyes: Periorbital structures: appear normal, Conjunctiva: normal, no exudate, no injection, Sclera: no appreciated abnormality, Lids and lashes: appear normal, bilaterally. 20:25 ENT: External ear(s): are unremarkable, Nose: is normal, Mouth: Lips: moist, Oral mucosa: pink and intact, moist, Posterior pharynx: is normal, airway is patent, no erythema, no exudate. 20:25 Neck: ROM/movement: is normal, is supple, without pain, no range of motions limitations, no nuchal rigidity. 20:25 Chest/axilla: Inspection: normal, Palpation: crepitus, is not appreciated, tenderness, that is mild, of the anterior aspect of right upper chest and right breast. 20:25 Cardiovascular: Rate: normal, Rhythm: regular, Pulses: Pulses are 2+ in right radial artery and left radial artery. Heart sounds: murmur, not appreciated, Edema: is not appreciated. 20:25 Respiratory: the patient does not display signs of respiratory distress, Respirations: normal, no use of accessory muscles, no retractions, labored breathing, is not present, Breath sounds: are clear throughout, no decreased breath sounds, no stridor, no wheezing. 20:25 Abdomen/GI: Inspection: abdomen appears normal, Palpation: abdomen is soft and non-tender, in all quadrants. 20:25 Back: pain, is absent, ROM is normal. 20:25 Musculoskeletal/extremity: DVT Exam: tenderness, that is mild, of the right leg, of the calf area. 20:25 Neuro: Orientation: to person, place \T\ time. Mentation: is normal, Cerebellar function: is grossly normal, Motor: moves all fours, strength is normal, Sensation: is normal, Gait: is steady. Vital Signs: 19:19 BP 122 / 61; Pulse 97; Resp 16; Temp 98.6(O); Pulse Ox 97% on R/A; Weight 104.33 kg; kd3 Height 5 ft. 2 in. (157.48 cm); Pain 5/10; 21:02 BP 127 / 63; Pulse 93; Resp 18 S; Pulse Ox 99% on R/A; lg3 23:08 BP 123 / 61; Pulse 91; Resp 17 S; Pulse Ox 99% on R/A; lg3 08/28 00:36 BP 121 / 64; Pulse 88; Resp 17 S; Pulse Ox 100% on R/A; lg3 08/27 19:19 Body Mass Index 42.07 (104.33 kg, 157.48 cm) kd3 MDM: 08/27 19:44 Patient medically screened. cp 20:00 Differential diagnosis: acute myocardial infarction, acute pericarditis, chest wall cp pain, costochondritis, pericarditis, pleurisy, pneumonia, pneumothorax, pulmonary embolus. 08/28 00:12 Data reviewed: vital signs, nurses notes, lab test result(s), EKG, radiologic studies, cp CT scan, plain films, ultrasound. 00:12 Consideration of Admission/Observation Escalation of care including cp admission/observation considered. I considered the following discharge prescriptions or medication management in the emergency department Medications were administered in the Emergency Department. See MAR. Counseling: I had a detailed discussion with the patient and/or guardian regarding: the historical points, exam findings, and any diagnostic results supporting the discharge/admit diagnosis, lab results, radiology results, the need for outpatient follow up, a family practitioner, to return to the emergency department if symptoms worsen or persist or if there are any questions or concerns that arise at home. Response to treatment: the patient's symptoms have markedly improved after treatment, and as a result, I will discharge patient. Special discussion: Based on the patient's history, exam, and Dx evaluation, there is no indication for emergent intervention or inpatient Tx. It is understood by the patient/guardian that if the Sx's persist or worsen they need to return immediately for re-evaluation. 08/27 19:24 Order name: Basic Metabolic Panel cp 08/27 19:24 Order name: CBC with Diff cp 08/27 19:24 Order name: D-Dimer cp 08/27 19:24 Order name: Magnesium cp 08/27 19:24 Order name: NT PRO-BNP cp 08/27 19:24 Order name: PT-INR cp 08/27 19:24 Order name: Troponin HS cp 08/27 20:18 Order name: SARS RAPID cp 08/27 20:21 Order name: CBC with Automated Diff; Complete Time: 21:19 EDMS 08/27 21:19 Interpretation: Normal except: WBC 14.80; HGB 12.2; HCT 36.7; MCV 77.4; MCH 25.6; PLT cp 446; RDW 15.8; MPV 7.2; NEUT A 8.9; MNA 1.5. 08/27 20:28 Order name: Protime (+INR); Complete Time: 21:19 EDMS 08/27 20:36 Order name: D-Dimer; Complete Time: 21:19 EDMS 08/27 23:56 Interpretation: D-DIMER 899; Reviewed. cp 08/27 20:47 Order name: Basic Metabolic Panel; Complete Time: 21:19 EDMS 08/27 20:47 Order name: Troponin High Sensitivity; Complete Time: 21:19 EDMS 08/27 20:47 Order name: NT PRO-BNP; Complete Time: 21:19 EDMS 08/27 19:24 Order name: XRAY Chest (1 view) cp 08/27 19:24 Order name: EKG; Complete Time: 19:25 cp 08/27 19:24 Order name: Cardiac monitoring; Complete Time: 21:05 cp 08/27 19:24 Order name: EKG - Nurse/Tech; Complete Time: 19:25 cp 08/27 19:24 Order name: IV Saline Lock; Complete Time: 20:10 cp 08/27 19:24 Order name: Labs collected and sent; Complete Time: 20:10 cp 08/27 19:24 Order name: O2 Per Protocol; Complete Time: 21:06 cp 08/27 19:24 Order name: O2 Sat Monitoring; Complete Time: 21:06 cp 08/27 20:18 Order name: US Extremity Venous Unilateral Ltd; Complete Time: 23:56 cp 08/27 23:56 Interpretation: Report reviewed. cp 08/27 20:47 Order name: Magnesium; Complete Time: 21:19 EDMS 08/27 21:12 Order name: SARS-COV-2 Antigen Rapid; Complete Time: 21:19 EDMS 08/27 21:20 Order name: RAD; Complete Time: 21:21 EDMS 08/27 21:21 Interpretation: Report reviewed. cp 08/27 21:20 Order name: CT Chest For PE Angio cp EC/15 19:33 Rate is 93 beats/min. Rhythm is regular. WI interval is normal. QRS interval is normal. cp QT interval is normal. T waves are Inverted in leads III, aVR. Interpreted by me. Reviewed by me. Administered Medications: 22:05 Drug: Ketorolac 15 mg Route: IVP; Site: left hand; [facility] 08/28 00:36 Follow up: Response: No adverse reaction; Marked relief of symptoms [facility] 08/27 22:05 Drug: NS 0.9% 1000 ml Route: IV; Rate: 1 bolus; Site: left hand; [facility] 08/28 00:36 Follow up: Response: No adverse reaction; IV Status: Completed infusion; IV Intake: lg3 1000ml Disposition: 01:25 Co-signature as Attending Physician, Doyle Ramey MD I agree with the assessment and kdr plan of care. Disposition Summary: 08/28/22 00:13 Discharge Ordered Location: Home cp Problem: new cp Symptoms: have improved cp Condition: Stable cp Diagnosis - Chest pain, unspecified cp Followup: cp - With: Private Physician - When: 2 - 3 days - Reason: Recheck today's complaints Discharge Instructions: - Discharge Summary Sheet cp - Nonspecific Chest Pain, Adult cp Forms: - Medication Reconciliation Form cp - Thank You Letter cp - Antibiotic Education cp - Prescription Opioid Use cp - Work release form lg3 Prescriptions: - Diclofenac Sodium 75 mg Oral Tablet Sustained Release - take 1 tablet by ORAL route 2 times per day; 30 tablet; Refills: 0, Product cp Selection Permitted Signatures: Dispatcher [employer] EDOK Doyle Ramey MD MD kdr Troy Olvera PA PA cp Elsa Dang, RN RN lg3 Heather Means RN RN kd3 Corrections: (The following items were deleted from the chart) 08/29 00:33 08/27 20:15 The chest pain is described as sharp, cp cp
--- NOTE | 2022-08-28 00:14 | ER ---
Nurse's Notes [facility] Name: Patel Gray Age: 26 yrs Sex: Male : 1995 Arrival Date: 08/27/2022 Time: 18:43 Bed 18 Private MD: Diagnosis: Chest pain, unspecified Presentation: 08/27 19:20 Chief complaint: Patient states: My chest pain started at around 5 PM today. It is kd3 right in the center of my chest and does not radiate anywhere. It feels like it is kind of getting better but when i breath in deep it makes it worse. It feels like pressure. Coronavirus screen: Vaccine status: Patient reports being unvaccinated. Ebola Screen: No symptoms or risks identified at this time. Initial Sepsis Screen: Does the patient meet any 2 criteria? No. Patient's initial sepsis screen is negative. Does the patient have a suspected source of infection? No. Patient's initial sepsis screen is negative. Risk Assessment: Do you want to hurt yourself or someone else? Patient reports no desire to harm self or others. Onset of symptoms was August 27, 2022. 19:20 Method Of Arrival: Ambulatory kd3 19:20 Acuity: SAMY 3 kd3 Triage Assessment: 19:22 General: Appears in no apparent distress. Behavior is calm, cooperative. Pain: kd3 Complains of pain in anterior aspect of left upper chest, mid-sternal area and left breast. Neuro: Level of Consciousness is awake, alert, obeys commands, Oriented to person, place, time, situation. Cardiovascular: Patient's skin is warm and dry. Respiratory: Airway is patent Trachea midline Respiratory effort is even, unlabored, Respiratory pattern is regular, symmetrical. Historical: - Allergies: 19:22 No Known Allergies; kd3 - Home Meds: 19:22 None [Active]; kd3 - PMHx: 19:22 adhd; kd3 - PSHx: 19:22 left hand; kd3 - Immunization history:: Adult Immunizations up to date. - Social history:: Smoking status: unknown. Screenin:23 [facility] ED Fall Risk Assessment (Adult) History of falling in the last 3 months, kd3 including since admission No falls in past 3 months (0 pts) Confusion or Disorientation No (0 pts) Intoxicated or Sedated No (0 pts) Impaired Gait No (0 pts) Mobility Assist Device Used No (0 pt) Altered Elimination No (0 pt) Score/Fall Risk Level 0 - 2 = Low Risk Maintained a safe environment. Abuse screen: Denies threats or abuse. Denies injuries from another. Nutritional screening: No deficits noted. Tuberculosis screening: No symptoms or risk factors identified. Assessment: 21:02 General: Appears in no apparent distress. comfortable, Behavior is calm, cooperative. lg3 Pain: Complains of pain in chest Pain does not radiate. Pain currently is 4 out of 10 on a pain scale. Quality of pain is described as heavy, pressure, Pain began 3 hours ago. Neuro: No deficits noted. Escobar Agitation-Sedation Scale (RASS): 0 - Alert and Calm Level of Consciousness is awake, alert, obeys commands, Oriented to person, place, time, situation. Cardiovascular: No deficits noted. Capillary refill < 3 seconds Clubbing of nail beds is absent JVD is absent Patient's skin is warm and dry. Respiratory: No deficits noted. Reports pain with respiration. GI: No deficits noted. No signs and/or symptoms were reported involving the gastrointestinal system. Abdomen is round non-distended. : No deficits noted. No signs and/or symptoms were reported regarding the genitourinary system. EENT: No deficits noted. No signs and/or symptoms were reported regarding the EENT system. Derm: No deficits noted. No signs and/or symptoms reported regarding the dermatologic system. Skin is intact, is healthy with good turgor, Skin is dry, Skin is normal, Skin temperature is warm. Musculoskeletal: No deficits noted. No signs and/or symptoms reported regarding the musculoskeletal system. Circulation, motion, and sensation intact. Range of motion: intact in all extremities. 23:08 Reassessment: Patient appears in no apparent distress at this time. No changes from lg3 previously documented assessment. Patient and/or family updated on plan of care and expected duration. Pain level reassessed. Patient is alert, oriented x 3, equal unlabored respirations, skin warm/dry/pink. 08/28 00:36 Reassessment: Patient appears in no apparent distress at this time. No changes from lg3 previously documented assessment. Patient and/or family updated on plan of care and expected duration. Pain level reassessed. Patient is alert, oriented x 3, equal unlabored respirations, skin warm/dry/pink. Patient states feeling better. Patient states symptoms have improved. Vital Signs: 08/27 19:19 BP 122 / 61; Pulse 97; Resp 16; Temp 98.6(O); Pulse Ox 97% on R/A; Weight 104.33 kg; kd3 Height 5 ft. 2 in. (157.48 cm); Pain 5/10; 21:02 BP 127 / 63; Pulse 93; Resp 18 S; Pulse Ox 99% on R/A; lg3 23:08 BP 123 / 61; Pulse 91; Resp 17 S; Pulse Ox 99% on R/A; lg3 08/28 00:36 BP 121 / 64; Pulse 88; Resp 17 S; Pulse Ox 100% on R/A; lg3 08/27 19:19 Body Mass Index 42.07 (104.33 kg, 157.48 cm) kd3 ED Course: 08/27 18:43 Patient arrived in ED. mr 19:22 Triage completed. kd3 19:22 Arm band placed on right wrist. kd3 19:23 No provider procedures requiring assistance completed. Patient maintains SpO2 kd3 saturation greater than 95% on room air. 19:24 Troy Olvera PA is PHCP. cp 19:24 EKG completed in triage. Results shown to MD. kd3 19:41 Doyle Ramey MD is Attending Physician. cp 20:10 Basic Metabolic Panel Sent. bc6 20:10 CBC with Diff Sent. bc6 20:10 D-Dimer Sent. bc6 20:10 Magnesium Sent. bc6 20:10 NT PRO-BNP Sent. bc6 20:10 PT-INR Sent. bc6 20:10 Troponin HS Sent. bc6 20:10 Inserted saline lock: 22 gauge in left hand, using aseptic technique. bc6 20:36 Notified Nurse Practitioner and/or Physician Lean Manufacturing Specialist of a critical lab result(s), bb DDimer of [address] notified. 21:00 SARS RAPID Sent. bc6 21:02 Patient has correct armband on for positive identification. Placed in gown. Bed in low lg3 position. Call light in reach. Side rails up X 1. Client placed on continuous cardiac and pulse oximetry monitoring. NIBP monitoring applied. night monitor on. Door closed. Noise minimized. Warm blanket given. 21:05 Elsa Dang, RN is Primary Nurse. lg3 21:34 US Extremity Venous Unilateral Ltd In Process Unspecified. EDMS 23:05 CT Chest For PE Angio In Process Unspecified. EDMS 02 00:37 IV discontinued, intact, bleeding controlled, No redness/swelling at site. Pressure lg3 dressing applied. Administered Medications: 08/27 22:05 Drug: Ketorolac 15 mg Route: IVP; Site: left hand; lg3 08/28 00:36 Follow up: Response: No adverse reaction; Marked relief of symptoms lg3 08/27 22:05 Drug: NS 0.9% 1000 ml Route: IV; Rate: 1 bolus; Site: left hand; lg3 08/28 00:36 Follow up: Response: No adverse reaction; IV Status: Completed infusion; IV Intake: lg3 1000ml Medication: 00:37 VIS not applicable for this client. lg3 Intake: 00:36 IV: 1000ml; Total: 1000ml. lg3 Outcome: 00:13 Discharge ordered by MD. cp 00:37 Discharged to home ambulatory. lg3 00:37 Condition: stable 00:37 Discharge instructions given to patient, Instructed on discharge instructions, follow up and referral plans. medication usage, Demonstrated understanding of instructions, follow-up care, medications, Prescriptions given X 1. 00:37 Patient left the ED. lg3 Signatures: Dispatcher [employer] [facility] Adalberto Precious FarleyRadha, RN RN Troy Weller PA PA cp Elsa Dang, RN RN lg3 Heather Means RN RN kd3 Mimi Vasquez [facility]
[2022-08-28 01:00] VITALS: TEMP 98.6
[2022-08-28 01:04] VITALS: BP 121/64; O2SAT 100
--- NOTE | 2022-08-28 11:52 | EKG ---
Test Date: 2022-08-27 Test Time: 19:25:05 Weapons Specialist: BRENNA MEASUREMENT RESULTS: Intervals: Rate: 93 OR: 122 QRSD: 84 QT: 348 QTc: 432 [place]: P: 6 OR: 122 QRS: 42 T: 10 INTERPRETIVE STATEMENTS: Normal sinus rhythm Normal ECG No previous ECG available for comparison Electronically Signed On 08-28-22 11:51:05 SEED CORE OPERATOR by Lew Mcclure
--- NOTE | 2022-08-28 12:31 | RAD REPORT ---
EXAM DESCRIPTION: Chest For Pe Angio CLINICAL HISTORY: 26 years Male, CHEST PAIN TECHNIQUE: Helical CT axial images of the thorax with IV contrast. Multiplanar reconstruction. MIP r econstruction plus or minus 3D image processing was also performed. This exam was performed according to our departmental dose-optimization program, which includes automated exposure control, adjustment of the mA and/or kV according to patient size and/or use of iterative reconstruction technique. COMPARISON: Chest x-ray performed earlier same day FINDINGS: VASCULAR: Pulmonary arteries are patent bilaterally without filling defects or intralumin al thrombus. Thoracic aorta is normal in caliber without aneurysm. No aortic dissection. The pulmonar y vasculature demonstrates no significant dilatation. LUNGS: The lung parenchyma is clear. No pulmonary masses or suspicious nodules. MEDIASTINUM: No abnormally enlarged mediastinal or hilar lymph nodes. PLEURA: No pleural effusion. No pneumothorax. CARDIAC: Normal heart size. No pericardial effusion. CHEST WALL: Chest wall is intact. No abnormal axillary lymphadenopathy. BONES: No suspicious osseous lytic or blastic lesions seen. UPPER ABDOMEN: The visualized upper abdomen demonstrates no acute abnormality. IMPRESSION: 1. No acute pulmonary embolus. 2. No acute cardiopulmonary disease. Negative examination. Electronically signed by: Adilson Fisher MD 08/27/2022 11:43 PM MICROELECTRONICS ENGINEER Due to temporary technical issues with the PACS/Fluency reporting system, reports are being signed by the in house radiologists without review as a courtesy to insure prompt reporting. The interpreting radiologist is fully responsible for the content of the report.
== END 2022-08-28 00:37 | disposition home or self-care (01) ==
LOC: ER 18:40
DX: R07.89 Other chest pain (principal); Z20.822 Contact with and (suspected) exposure to COVID-19
CPT/HCPCS: 96361; 93005; 85025; 80048; 36415; 83735; 85610; 85379; 84484; 83880; 71275; 71045; 93971; 96374; 99285; 87811; Q9967; J7030

== ENCOUNTER 2023-02-21 03:29 | Emergency (ER) | payer SELFPAY ==
--- OUTSIDE RECORDS SUMMARY | 2023-02-21 03:33 | XMS REPORT | Continuity of Care Document ---
:1995 Author Organization [facility] t Address [address] [place] [address] Care Team Providers Name Role Phone PCP, PATIENT DOES NOT HAVE A Primary Care Physician UnavailESPINOZA Nance Attending Clinician Unavailable KAPIL SCHNEIDER Attending Clinician Unavailable Kapil Hogan Attending Clinician LUDMILA BRENNAN Attending Clinician Unavailable LEN GARCIA Attending Clinician Unavailable GRETCHEN ALICIA Attending Clinician Unavailable LAB90 Attending Clinician Unavailable Gretchen Daniel Attending Clinician KAPIL SCHNEIDER Admitting Clinician Unavailable Payers Payer Name Policy Type Policy Number Effective Date Expiration Date S estrada LEOS [id number] 2015 [employer] 00:00:00 MULTIPLAN-GPA/PPO 2 [id number] 2022 00:00:00 [facility] 2 [id number] 2021 [facility]-Rewardable LIFE 00:00:00 Problems Condition Condition Condition Status Onset Resolution Last Treating Co mments Source Name Details Category Date Date Treatment Clinician Date No known No known Disease Kelse y active active Seybold problems problems Allergies, Adverse Reactions, Alerts Allergy Allergy Status Severity Reaction(s) Onset Inactive Treating Comm ents Source Name Type Date Date Clinician NO KNOWN Drug Active Univers ALLERGIE Class ity of S [facility] Social History Social Habit Start Date Stop Date Quantity Comments Source History of tobacco Cigarette Smoker Sarah Ferrellkatelyn - use External Exposure to 2022-10-31 2022-11-10 Not sure [facility] SARS-CoV-2 (event) 00:00:00 14:54:00 [facility] Alcohol intake 2022-09-01 2022-09-01 Lifetime Sarah Alvarado bold - 00:00:00 00:00:00 non-drinker External (finding) Cigarettes smoked 2022-09-01 2022-09-01 Sarah Carter - current (pack per 00:00:00 00:00:00 Externa l day) - Reported Sex Ass[birth year] Universit y [facility] 00:00:00 00:00:00 [facility] Smoking Status Start Date Stop Date Source Tobacco smoking University [place] consumption unknown Medical Bran ch Ex-smoker 2022-09-01 00:00:00 2022-09-01 Sarah Arriaga ld - 00:00:00 External Smokes tobacco daily 2021-08-08 00:00:00 Sarah Carter Medications Ordered Filled Start Stop Current Ordering Indication Dosage Frequency Signature Comments Components Source Medication Medication Date Date Medication? Clinician (SIG) Name Name albuterol Yes [id number] 2{puff} Inhale 2 Univers 90 5-01 Puffs ity of mcg/actuati 00:00: every 4 Bobby as on inhaler 00 (four) Medical hours as Branch needed for Wheezing, Shortness of Breath or Chest tightness. ibuprofen Yes [id number] 800mg Take 1 U nivers 800 mg 5-01 tablet by ity of tablet 00:00: mouth [place] 00 every 8 Medical (eight) Branch hours as needed for Pain (scale 4-6). Metformin 2021-07 Yes [id number] 500mg Take 1 Sarah HCl 500 MG 0-12 tablet Seybold oral Tablet 00:00: (500 mg - 00 total) by Externa mouth in l the morning and 1 tablet (500 mg total) in the evening. Take with meals. Amoxicillin 2022- No [id number] 1{tbl} Take 1 Sarah -Pot 08-1420 tablet by Seybold Clavulanate 00:00: 00:00 mouth 2 - 875-125 MG 00 :00 times Externa oral Tablet daily l Propranolol 2021-0 Yes [id number] 20mg Take 1 Sarah HCl 20 MG 1-27 tablet (20 Seyb old oral Tablet 00:00: mg total) 00 by mouth 3 times daily Fluticasone 2021-0 Yes [id number] 2{puff} Inhale 2 Sarah -Salmeterol 1-27 puffs into Se ybold (Advair 00:00: the lungs HFA) 45-21 00 2 times MCG/ACT daily inhalation Aerosol Bupropion 2021-0 Yes [id number] 150mg Take 1 Sarah HCL XL 150 1-27 tablet Seybold MG OR TB24 00:00: (150 mg 00 total) by mouth daily Propranolol 0 2022- No [id number] 20mg Take 1 Sarah HCl 20 MG 1-27 02-20 tablet (20 Sey bold oral Tablet 00:00: 00:00 mg total) - 00 :00 by mouth 3 Externa times l daily Fluticasone 0 3- No [id number] 2{puff} Inhale 2 Sarah -Salmeterol 1-27 02-20 puffs into S eybold (Advair 00:00: 00:00 the lungs - HFA) 45-21 00 :00 2 times 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 Immunizations Ordered Immunization Filled Immunization Date Status Commen ts Source Name Name HPV 4 (Human 2014-10-10 Completed Sarah Arriaga ld Papillomavirus) 00:00:00 Meningococcal 2014-10-10 Completed Sarah zepeda Vaccine- 00:00:00 Conjugate(Menactra) HPV 4 (Human 2014-10-10 Completed Sarah wagoner Papillomavirus) 00:00:00 - Externa l Meningococcal 2014-10-10 Completed Sarah Ferrell old Vaccine- 00:00:00 - External Conjugate(Menactra) HEPATITIS A- 2012-08-16 Completed Sarah wagoner PEDI/ADOL 00:00:00 HEPATITIS A- 2012-08-16 Completed Sarah wagoner PEDI/ADOL 00:00:00 - External HEPATITIS A- 2011-02-24 Completed Sarah wagoner PEDI/ADOL 00:00:00 HEPATITIS A- 2011-02-24 Completed Sarah wagoner PEDI/ADOL 00:00:00 - External Meningococcal 2010-02-20 Completed Sarah Ferrell old Vaccine- 00:00:00 Conjugate(Menactra) Tdap- (Boostrix, 2010-02-20 Completed Sarah naik Adacel) 00:00:00 Varicella Vaccine 2010-02-20 Completed Sarah Carter 00:00:00 Meningococcal 2010-02-20 Completed Sarah zepeda Vaccine- 00:00:00 - External Conjugate(Menactra) Tdap- (Boostrix, 2010-02-20 Completed Sarah naik Adacel) 00:00:00 - External Varicella Vaccine 2010-02-20 Completed Sarah Carter 00:00:00 - External DTaP Unspecified 2002-02-24 Completed Sarah Perry eybold 00:00:00 IPV- Inactivated 2002-02-24 Completed Sarah ayalaborizwana Polio Vaccine 00:00:00 Varicella Vaccine 2002-02-24 Completed Sarah Carter 00:00:00 MMR- Measles, Mumps, 2002-02-24 Completed Daisy Carter Rubella 00:00:00 DTaP Unspecified 2002-02-24 Completed Sarah Perry eybold 00:00:00 - External IPV- Inactivated 2002-02-24 Completed Sarah Perry eyborizwana Polio Vaccine 00:00:00 - External Varicella Vaccine 2002-02-24 Completed Sarah Carter 00:00:00 - External MMR- Measles, Mumps, 2002-02-24 Completed Daisy ayala Seybold Rubella 00:00:00 - External DTaP Unspecified 1999-10-09 Completed Sarah S eybold 00:00:00 HIB- Haemophilus 1999-10-09 Completed Sarah S eybold Influenzae Type B 00:00:00 DTaP Unspecified 1999-10-09 Completed Sarah S eybold 00:00:00 - External HIB- Haemophilus 1999-10-09 Completed Sarah S eybold Influenzae Type B 00:00:00 - Exter nal DTaP Unspecified 1997-10-03 Completed Sarah Perry eybold 00:00:00 Hepatitis B, 1997-10-03 Completed Sarah Ferrello ld Adolescent Or 00:00:00 Pediatric Hib, unspecified 1997-10-03 Completed Sarah Perry eybold formulation 00:00:00 IPV- Inactivated 1997-10-03 Completed Sarah Perry eybold Polio Vaccine 00:00:00 DTaP Unspecified 1997-10-03 Completed Sarah S eybold 00:00:00 - External Hepatitis B, 1997-10-03 Completed Sarah Ferrello ld Adolescent Or 00:00:00 - External Pediatric Hib, unspecified 1997-10-03 Completed Sarah Perry eybold formulation 00:00:00 - External IPV- Inactivated 1997-10-03 Completed Sarah Perry eybold Polio Vaccine 00:00:00 - External DPT/HIB 1997-02-14 Completed Sarah Ferrellold 00:00:00 Hepatitis B, 1997-02-14 Completed Sarah Ferrello ld Adolescent Or 00:00:00 Pediatric OPV- Oral Polio 1997-02-14 Completed Sarah Se ybold Vaccine 00:00:00 DPT/HIB 1997-02-14 Completed Sarah Quintanaybold 00:00:00 - External Hepatitis B, 1997-02-14 Completed Sarah Quintanaybo ld Adolescent Or 00:00:00 - External Pediatric OPV- Oral Polio 1997-02-14 Completed Sarah Se ybold Vaccine 00:00:00 - External Hepatitis B, 1995 Completed Sarah Ferrello ld Adolescent Or 00:00:00 Pediatric Hepatitis B, 1995 Completed Sarah Seybo ld Adolescent Or 00:00:00 - External Pediatric Vital Signs Vital Name Observation Time Observation Value Comments Source Systolic blood 2022-11-10 19:55:00 141 [facility] Diastolic blood 2022-11-10 19:55:00 69 mm[Hg] Unive rsity of pressure [facility] Heart rate 2022-11-10 19:55:00 97 /min Universi ty of [facility] Body temperature 2022-11-10 19:55:00 37 Iwona Univ ersity of [facility] Respiratory rate 2022-11-10 19:55:00 16 /min Univ ersity of [facility] Body height 2022-11-10 19:55:00 157.5 cm Universi ty of [facility] Body weight 2022-11-10 19:55:00 108.863 kg Universi ty of [facility] BMI 2022-11-10 19:55:00 43.90 kg/m2 Universi ty [facility] Oxygen saturation in 2022-11-10 19:55:00 96 /min [facility] Arterial blood by [facility] Pulse oximetry Branch Systolic blood 2022-09-01 14:21:00 110 mm[Hg] Sarah Seybold - pressure External Diastolic blood 2022-09-01 14:21:00 76 mm[Hg] Kelse y Seybold - pressure External Heart rate 2022-09-01 14:21:00 94 /min Sarah S eybold - External Body temperature 2022-09-01 14:21:00 36.39 Iwona Daisy ey Seybold - External Respiratory rate 2022-09-01 14:21:00 15 /min Daisy ey Seybold - External Body height 2022-09-01 14:21:00 160 cm Sarah S eybold - External Body weight 2022-09-01 14:21:00 102.059 kg Sarah S eybold - External BMI 2022-09-01 14:21:00 39.86 kg/m2 Sarah S eybold - External Systolic blood 2021-08-08 16:30:00 126 mm[Hg] Sarah Seybold pressure Diastolic blood 2021-08-08 16:30:00 86 mm[Hg] Kelse y Seybold pressure Heart rate 2021-08-08 16:30:00 102 /min Sarah S eybold Body temperature 2021-08-08 16:30:00 36.72 Iwona Daisy ey Seybold Respiratory rate 2021-08-08 16:30:00 17 /min Daisy ey Serimmakatelyn Body height 2021-08-08 16:30:00 157.5 cm Sarah naik Body weight 2021-08-08 16:30:00 103.239 kg Sarah naik BMI 2021-08-08 16:30:00 41.63 kg/m2 Sarah Perry gumaro Procedures Procedure Date / Time Performed Performing Clinician [facility] e ASSIGNMENT OF BENEFITS 2022-11-10 21:19:06 Doctor Unassigned, No [facility] XR CHEST 1 VW 2022-11-10 20:44:00 Kapil Schneider [facility] NOTICE OF PRIVACY 2022-11-10 19:42:02 Doctor Unassigned, No [facility] LIPID PANEL 2021-08-08 17:47:00 Gretchen Alicia ld CMP14+CBC/D/PLT+TSH 2021-08-08 17:47:00 Gretchen Alicia W/RFLX Encounters Start End Encounter Admission Attending Care Care Encounter Source Date/Time Date/Time Type Type Clinicians Facility Department ID 2022-11-26 2022-11-26 Outpatient SARAH VIZCARRA [id number] Sarah 00:00:00 00:00:00 ESPINOZA flannery 2022-11-10 2022-11-10 Emergency [facility] E[facility] [id number] Univers 14:56:00 16:59:[address] [facility] 2022-11-10 2022-11-10 Emergency [facility] [id number] Univers 14:56:00 16:59:00 Kapil VARGAS [id number] [facility] [id number] [facility] [id number] [place] [id number] Branch 2022-11-10 2022-11-10 Outpatient SARAH BRENNAN [id number] Sarah 00:00:00 00:00:00 LUDMILA flannery 2022-09-29 2022-09-29 Outpatient SARAH BRENNAN [id number] Sarah 08:15:00 08:15:00 LUDMILA Seybol d 2022-09-23 2022-09-23 Outpatient VIZCARRASARAH MARQUEZ [id number] Sarah 00:00:00 00:00:00 ESPINOZA Seybol d 2022-09-19 2022-09-19 Outpatient PRESARAH PANCHAL [id number] Sarah 09:00:00 09:00:00 LEN Seybol d 2022-09-19 2022-09-19 Outpatient VIZCARRASARAH MARQUEZ [id number] Sarah 00:00:00 00:00:00 ESPINOZA Seybol d 2022-09-19 2022-09-19 Outpatient VIZCARRASARAH MARQUEZ [id number] Sarah 00:00:00 00:00:00 ESPINOZA Seybol d 2022-09-18 2022-09-18 Outpatient SARAH ALICIA [id number] Sarah 00:00:00 00:00:00 GRETCHEN Seybol d 2022-09-01 2022-09-01 Outpatient SARAH BRENNAN [id number] Sarah 08:00:00 08:00:00 LUDMILA Seybol d 2021-08-14 2021-08-14 Outpatient SARAH ALICIA [id number] Sarah 00:00:00 00:00:00 GRETCHEN Seybol d 2021-08-11 2021-08-11 Outpatient SARAH ALICIA [id number] Sarah 00:00:00 00:00:00 GRETCHEN Seybol d 2021-08-08 2021-08-08 Outpatient LAB90 SARAH NICHOLAS [id number] Sarah 11:40:00 11:40:00 Seybol d 2021-08-08 2021-08-08 Office Manoj Alicia [id number] Sarah 10:00:00 11:00:00 Visit Gretchen Hodges [id number] Se ybold [id number] 2021-08-06 2021-08-06 Outpatient SARAH BRENNAN [id number] Sarah 00:00:00 00:00:00 LUDMILA Seybol d Results Test Description Test Time Test Comments Results Result Comments Source CMP14+CBC/D/PLT+TSH W/RFLX 2021-08-09 15:20:00 Test Item Value Reference Range Interpretation Comme nts GLUCOSE, SERUM (test code 91 mg/dL 65-99 = 2345-7) BUN (test code = 3094-0) 12 mg/dL 6-20 CREATININE, SERUM (test 0.83 mg/dL 0.76-1.27 code = 2160-0) EGFR IF NONAFRICN AM (test 123 mL/min/1.73 >59 code = 63112-3) EGFR IF AFRICN AM (test 142 mL/min/1.73 >59 * *In accordance with code = 89183-4) recommendati ons from the NKF-ASN Task fo rce, ?[facility] is in the process of updating its eGFR calculation to the ?2020 CKD-EPI creatin ine equation that e stimates kidney function ?without a race variable. BUN/CREATININE RATIO (test - code = 3097-3) SODIUM, SERUM (test code = 139 mmol/L 845-256 2631-2) POTASSIUM, SERUM (test 4.9 mmol/L 3.5-5.2 code = 2823-3) CHLORIDE, SERUM (test code 101 mmol/L 96-106 = 2075-0) CARBON DIOXIDE, TOTAL 23 mmol/L 20-29 (test code = 2027-) CALCIUM, SERUM (test code 9.5 mg/dL 8.7-10.2 = 14486-2) PROTEIN, TOTAL, SERUM 8.1 g/dL 6.0-8.5 (test code = 2885-2) ALBUMIN, SERUM (test code 4.5 g/dL 4.1-5.2 = 1751-7) GLOBULIN, TOTAL (test code 3.6 g/dL 1.5-4.5 = 03351-7) A/G RATIO (test code = 1.2-2.2 1759-0) BILIRUBIN, TOTAL (test <0.2 0.0-1.2 code = 1975-2) ALKALINE PHOSPHATASE, See_Comment [Auto mated message] The [...] as normal/abnormal . TSH (test code = 92811-7) See_Comment [ Automated message] The system which [...] The (test code = 789-8) system w [facility] generated this result tra nsmitted reference range [...] message] The (test code = 751-8) system w [facility] generated this result tra nsmitted reference range [...] 0 % Not Estab. (test code = 85376-0) IMMATURE GRANS (ABS) (test See_Comment [Automated message] The code = 11913-3) system which generated this result tra nsmitted reference range : 0.0 - 0.1 x10E3/uL. The r eference range was not u sed to interpret this result as normal/abnormal . CHRIS (test code = CHRIS) [facility] results reported in Eastern Time. [facility] Clinical Information:SRC:Blo od, venous*Venipunc ture ? [facility] Source of Specimen:Blood, venous*Venipunc Lab Interpretation (test Abnormal code = 09932-4) Sarah CarterLIPID [id number] 15:20:00 Test Item Value Reference Range Interpretation Comments CHOLESTEROL, TOTAL (test 184 mg/dL 100-199 code = 2093-3) TRIGLYCERIDES (test code = 104 mg/dL 0-149 2571-8) HDL CHOLESTEROL (test code 46 mg/dL >39 = 5-9) VLDL CHOLESTEROL CARMENCITA (test 19 mg/dL 5-40 code = 32709-3) LDL CHOL CALC (NIH) (test 119 mg/dL 0-99 H code = 29884-9) CHRIS (test code = CHRIS) [facility] results reported in Eastern Time. [facility] Clinical Information:[facility] Source of Specimen:Blood, venous*Venipunc Lab Interpretation (test Abnormal code = 61576-7) Sarah Carter
[2023-02-21 04:39] LABS: Absolute Lymphocytes (CBC) 3.1 K/uL (0.7-4.9); Hematocrit 34.6 % (39.6-49.0); Lymphocytes % 21.2 % (15.3-44.8); MCV 78.6 fL (80-100); MPV 7.2 fL (7.6-11.3); Platelets 418 thou/uL (152-406); RBC Red Blood Cell Count 4.39 M/uL (4.33-5.43)
[2023-02-21] MEDS ORDERED: KETOROLAC 30 MG/ML INJ ONE (04:43)
[2023-02-21] MEDS ORDERED: dexAMETHasone 10 MG/ML VIAL ONE (04:43)
[2023-02-21] MEDS ORDERED: NA CHLORIDE 0.9% 1,000 ML ONE (04:43)
[2023-02-21] MEDS ORDERED: DIAZEPAM 5 MG TABLET ONE (04:43)
[2023-02-21 04:57] LABS: Potassium 3.8 mEq/L (3.5-5.1)
[2023-02-21 04:58] LABS: Bilirubin Total 0.1 mg/dL (0.2-1.0); C-Reactive Protein 25.8 mg/L (<3.00); Protein, Total 7.3 g/dL (6.4-8.2)
--- NOTE | 2023-02-21 06:44 | ER ---
Nurse's Notes [facility] Name: Patel Gray Age: 27 yrs Sex: Male : 1995 Arrival Date: 02/21/2023 Time: 03:29 Bed 10 Private MD: Diagnosis: Pain in right hip;Elevated white blood cell count, unspecified;Unspecified symptoms and signs involving the musculoskeletal system;Anemia, unspecified;Gluteal tendinitis, right hip;Trochanteric bursitis, right hip Presentation: 02/21 04:06 Chief complaint: Patient states: right hip pain since waking up on morning of 02/20/23. Coronavirus screen: Vaccine status: Patient reports being unvaccinated. Ebola Screen: Patient negative for fever greater than or equal to 101.5 degrees Fahrenheit, and additional compatible Ebola Virus Disease symptoms. Initial Sepsis Screen: Does the patient meet any 2 criteria? No. Patient's initial sepsis screen is negative. Does the patient have a suspected source of infection? No. Patient's initial sepsis screen is negative. Risk Assessment: Do you want to hurt yourself or someone else? Patient reports no desire to harm self or others. 04:06 Method Of Arrival: Ambulatory 04:06 Acuity: SAMY 3 kl Triage Assessment: 04:08 General: Appears uncomfortable, Behavior is cooperative. Pain: Complains of pain in kl right hip Pain currently is 8 out of 10 on a pain scale. EENT: No deficits noted. Neuro: No deficits noted. Cardiovascular: No deficits noted. Respiratory: No deficits noted. GI: No deficits noted. No signs and/or symptoms were reported involving the gastrointestinal system. : No deficits noted. No signs and/or symptoms were reported regarding the genitourinary system. Derm: No deficits noted. No signs and/or symptoms reported regarding the dermatologic system. Musculoskeletal: Tenderness present in right hip Reports pain in right hip. Historical: - Allergies: 04:08 No Known Allergies; kl - Home Meds: 04:08 None [Active]; kl - PMHx: 04:08 adhd; kl - PSHx: 04:08 left hand; kl - Immunization history:: Adult Immunizations not immunized. - Social history:: Smoking status: Patient denies any tobacco usage or history of. - Family history:: not pertinent. Screenin:55 [facility] ED Fall Risk Assessment (Adult) History of falling in the last 3 months, kl including since admission No falls in past 3 months (0 pts) Confusion or Disorientation No (0 pts) Intoxicated or Sedated No (0 pts) Impaired Gait Yes (1 pt) Mobility Assist Device Used No (0 pt) Altered Elimination No (0 pt) Score/Fall Risk Level 0 - 2 = Low Risk Oriented to surroundings, Maintained a safe environment. Abuse screen: Denies threats or abuse. Nutritional screening: No deficits noted. Tuberculosis screening: No symptoms or risk factors identified. Assessment: 04:54 Reassessment: Patient appears in no apparent distress at this time. Vital Signs: 04:06 BP 105 / 42; Pulse 97; Resp 18; Temp 98.3; Pulse Ox 98% on R/A; Weight 104.33 kg (R); kl Height 5 ft. 2 in. ; Pain 8/10; 04:55 BP 138 / 77; Pulse 82; Pulse Ox 94% on R/A; kl 07:31 BP 137 / 94; Pulse 95; Resp 15; Pulse Ox 99% on R/A; kl 04:06 Body Mass Index 42.07 (104.33 kg, 157.48 cm) kl 04:06 Pain Scale: Adult ED Course: 03:30 Patient arrived in ED. [email or web address] 03:57 Troy Davis MD is Attending Physician. treasure 04:08 Triage completed. kl 04:40 Hip Right 2 View XRAY In Process Unspecified. EDMS 04:55 No apparent distress. Resting quietly. Appears to be sleeping. kl 04:55 Inserted saline lock: 20 gauge in right antecubital area, using aseptic technique. kl 05:40 Hip Right Wo Con In Process Unspecified. EDMS 05:41 Hip Right W Con In Process Unspecified. EDMS 06:48 Fercho Anderson MD is Referral Physician. treasure 07:18 Patient has correct armband on for positive identification. kl 07:31 No provider procedures requiring assistance completed. IV discontinued, intact, kl bleeding controlled, No redness/swelling at site. Pressure dressing applied. Administered Medications: 04:40 Drug: NS 0.9% IV 1000 ml Route: IV; Rate: 1 bolus; Site: right forearm; fu 04:40 Drug: Ketorolac IVP 30 mg Route: IVP; Site: right forearm; fu 04:40 Drug: Decadron - Dexamethasone IVP 10 mg Route: IVP; Site: right forearm; fu 04:40 Drug: Diazepam PO 10 mg Route: PO; fu Outcome: 06:48 Discharge ordered by . treasure 07:32 Discharged to home ambulatory. 07:32 Condition: improved 07:32 Discharge instructions given to patient, Instructed on discharge instructions, follow up and referral plans. medication usage, Demonstrated understanding of instructions, follow-up care, medications, Prescriptions given X 4. 07:32 Patient left the ED. kl Signatures: Dispatcher [employer] EDMS Jerica Ashton RN RN kl Anderson, Corey, MD MD cha Umadhay, Felix, RN RN fu Jeffries, Jennifer [email or web address]
--- NOTE | 2023-02-21 06:44 | EDPHYS ---
Physician Documentation [facility] Name: Patel Gray Age: 27 yrs Sex: Male : 1995 Arrival Date: 02/21/2023 Time: 03:29 Bed 10 Private MD: MORRO Physician Troy Davis HPI: 02/21 04:09 This 27 yrs old Black Male presents to ER via Ambulatory with complaints of Hip Pain. treasure 04:09 The patient or guardian reports decreased range of motion, pain. sustained from unknown treasure reason, There is no obvious deformity, The patient is able to ambulate with assistance. The patient is able to bear partial body weight. There is no radiation of the patient's discomfort. The complaints affect the right hip. Onset: The symptoms/episode began/occurred 2 day(s) ago. Modifying factors: The symptoms are alleviated by nothing, remaining still, the symptoms are aggravated by any movement, internal rotation, weight bearing. Associated signs and symptoms: Loss of consciousness: the patient experienced no loss of consciousness. Severity of symptoms: At their worst the symptoms were moderate, in the emergency department the symptoms are unchanged. The patient has not experienced similar symptoms in the past. Historical: - Allergies: 04:08 No Known Allergies; kl - Home Meds: 04:08 None [Active]; kl - PMHx: 04:08 adhd; kl - PSHx: 04:08 left hand; kl - Immunization history:: Adult Immunizations not immunized. - Social history:: Smoking status: Patient denies any tobacco usage or history of. - Family history:: not pertinent. ROS: 04:09 Constitutional: Negative for fever, chills, and weight loss, Eyes: Negative for injury, treasure pain, redness, and discharge, ENT: Negative for injury, pain, and discharge, Neck: Negative for injury, pain, and swelling, Cardiovascular: Negative for chest pain, palpitations, and edema, Respiratory: Negative for shortness of breath, cough, wheezing, and pleuritic chest pain, Abdomen/GI: Negative for abdominal pain, nausea, vomiting, diarrhea, and constipation, Back: Negative for injury and pain, : Negative for injury, bleeding, discharge, and swelling, Skin: Negative for injury, rash, and discoloration, Neuro: Negative for headache, weakness, numbness, tingling, and seizure, Psych: Negative for depression, anxiety, suicide ideation, homicidal ideation, and hallucinations, Allergy/Immunology: Negative for hives, rash, and allergies, Endocrine: Negative for neck swelling, polydipsia, polyuria, polyphagia, and marked weight changes, Hematologic/Lymphatic: Negative for swollen nodes, abnormal bleeding, and unusual bruising. 04:09 Constitutional: Positive for 04:09 MS/extremity: Positive for decreased range of motion, pain, tenderness, of the right hip. Exam: 04:09 Constitutional: This is a well developed, well nourished patient who is awake, alert, treasure and in no acute distress. Head/Face: Normocephalic, atraumatic. Eyes: Pupils equal round and reactive to light, extra-ocular motions intact. Lids and lashes normal. Conjunctiva and sclera are non-icteric and not injected. Cornea within normal limits. Periorbital areas with no swelling, redness, or edema. ENT: Nares patent. No nasal discharge, no septal abnormalities noted. Tympanic membranes are normal and external auditory canals are clear. Oropharynx with no redness, swelling, or masses, exudates, or evidence of obstruction, uvula midline. Mucous membranes moist. Neck: Trachea midline, no thyromegaly or masses palpated, and no cervical lymphadenopathy. Supple, full range of motion without nuchal rigidity, or vertebral point tenderness. No Meningismus. Chest/axilla: Normal chest wall appearance and motion. Nontender with no deformity. No lesions are appreciated. Cardiovascular: Regular rate and rhythm with a normal S1 and S2. No gallops, murmurs, or rubs. Normal PMI, no JVD. No pulse deficits. Respiratory: Lungs have equal breath sounds bilaterally, clear to auscultation and percussion. No rales, rhonchi or wheezes noted. No increased work of breathing, no retractions or nasal flaring. Abdomen/GI: Soft, non-tender, with normal bowel sounds. No distension or tympany. No guarding or rebound. No evidence of tenderness throughout. Back: No spinal tenderness. No costovertebral tenderness. Full range of motion. Male : Normal genitalia with no discharge or lesions. Skin: Warm, dry with normal turgor. Normal color with no rashes, no lesions, and no evidence of cellulitis. Neuro: Awake and alert, GCS 15, oriented to person, place, time, and situation. Cranial nerves II-XII grossly intact. Motor strength 5/5 in all extremities. Sensory grossly intact. Cerebellar exam normal. Normal gait. Psych: Awake, alert, with orientation to person, place and time. Behavior, mood, and affect are within normal limits. 04:09 Musculoskeletal/extremity: Extremities: grossly normal except: decreased ROM, pain, ROM: limited active range of motion, limited passive range of motion, limited active range of motion due to pain, limited passive range of motion due to pain, Circulation is intact in all extremities. Sensation intact. Compartment Syndrome exam of affected extremity: is normal. Weight bearing: can bear weight with assistance only, Tendon exam: specific tendon testing normal through active and passive range of motion DVT Exam: no swelling, negative Homans' sign noted on exam, no appreciated bluish discoloration, no erythema, no increased warmth, pain, tenderness. Vital Signs: 04:06 BP 105 / 42; Pulse 97; Resp 18; Temp 98.3; Pulse Ox 98% on R/A; Weight 104.33 kg (R); kl Height 5 ft. 2 in. ; Pain 8/10; 04:55 BP 138 / 77; Pulse 82; Pulse Ox 94% on R/A; kl 07:31 BP 137 / 94; Pulse 95; Resp 15; Pulse Ox 99% on R/A; kl 04:06 Body Mass Index 42.07 (104.33 kg, 157.48 cm) kl 04:06 Pain Scale: Adult kl MDM: 03:57 Patient medically screened. [facility] 04:13 Differential diagnosis: bursitis, arthritis, strain. Data reviewed: vital signs, nurses [facility] notes, lab test result(s), radiologic studies, CT scan, plain films. Consideration of Admission/Observation Escalation of care including admission/observation considered. I considered the following discharge prescriptions or medication management in the emergency department Medications were administered in the Emergency Department. See MAR. Test considered but Not performed: EKG: NO EKG. Care significantly affected by the following chronic conditions: ADHD. 02/21 04:09 Order name: CBC with Diff; Complete Time: 04:45 [facility] 02/21 04:09 Order name: Comprehensive Metabolic Panel; Complete Time: 05:16 [facility] 02/21 04:09 Order name: CRP; Complete Time: 05:16 [facility] 02/21 04:09 Order name: Hip Right 2 View XRAY [facility] 02/21 04:18 Order name: Hip Right Wo Con EDMS 02/21 04:19 Order name: Hip Right W Con EDMS 02/21 04:50 Order name: Crutches [facility] 02/21 04:51 Order name: Ice pack treasure Administered Medications: 04:40 Drug: NS 0.9% IV 1000 ml Route: IV; Rate: 1 bolus; Site: right forearm; fu 04:40 Drug: Ketorolac IVP 30 mg Route: IVP; Site: right forearm; fu 04:40 Drug: Decadron - Dexamethasone IVP 10 mg Route: IVP; Site: right forearm; fu 04:40 Drug: Diazepam PO 10 mg Route: PO; fu Disposition Summary: 02/21/23 06:48 Discharge Ordered Location: Home(02/21/23 06:48) treasure Problem: new(02/21/23 06:48) treasure Symptoms: have improved(02/21/23 06:48) treasure Condition: Stable(02/21/23 06:48) treasure Diagnosis - Pain in right hip treasure - Elevated white blood cell count, unspecified treasure - Unspecified symptoms and signs involving the musculoskeletal system treasure - Anemia, unspecified treasure - Gluteal tendinitis, right hip(02/21/23 06:48) treasure - Trochanteric bursitis, right hip(02/21/23 06:48) treasure Followup: treasure - With: Private Physician - When: 2 - 3 days - Reason: Recheck today's complaints, Continuance of care, Re-evaluation by your physician Followup: treasure - With: - When: 2 - 3 days - Reason: Recheck today's complaints, Re-evaluation by your physician Discharge Instructions: - Discharge Summary Sheet treasure - Arthritis treasure - Musculoskeletal Pain treasure - Tendinitis treasure - Hip Bursitis, [id number]-Pqfz treasure - Bursitis, Oygv-lq-Rbeo treasure - Gluteus Medius Syndrome Rehab-SportsMed treasure - Gluteus Medius Syndrome treasure Forms: - Work release form kl - Medication Reconciliation Form treasure - Thank You Letter treasure - Antibiotic Education treasure - Prescription Opioid Use treasure - Patient Portal Instructions treasure - Leadership Thank You Letter treasure Prescriptions: - acetaminophen-codeine 300-30 mg Oral tablet - take 2 tablet by ORAL route every 6 hours as needed for pain; 24 tablet; treasure Refills: 0, Product Selection Permitted - dexamethasone 2 mg Oral tablet - take 1 tablet by ORAL route every 12 hours; 10 tablet; Refills: 0, Product treasure Selection Permitted - Valium 5 mg Oral Tablet - take 1 tablet by ORAL route every 8 hours As needed; 20 tablet; Refills: 0, treasure Product Selection Permitted - Diclofenac Sodium 75 mg Oral Tablet Sustained Release - take 1 tablet by ORAL route 2 times per day; 30 tablet; Refills: 0, Product treasure Selection Permitted Signatures: Dispatcher [employer] EDJerica Dunn, RN Troy Armstrong MD MD cha Umadhay, Felix RN RN fu Corrections: (The following items were deleted from the chart) 04:18 04:14 CT RIGHT HIP WO CONTRAST ordered. EDNE EDMS 06:44 06:43 Home treasure treasure 06:44 06:43 new treasure [facility] 06:44 06:43 have improved treasure treasure 06:44 06:43 Fair treasure treasure 06:44 06:43 Trochanteric bursitis, right hip treasure [facility] 06:44 06:43 Gluteal tendinitis, right hip treasure treasure
[2023-02-21 07:38] VITALS: TEMP 98.3
[2023-02-21 07:41] VITALS: BP 137/94; O2SAT 99
--- NOTE | 2023-02-22 17:55 | RAD REPORT ---
EXAM DESCRIPTION: CT - Hip Right W Con - 02/21/2023 6:48 am CLINICAL HISTORY: The patient is 27 years old and is Male; PAIN TECHNIQUE: Axial computed tomography images of the right hip with intravenous contrast. Sagittal a nd coronal reformatted images were created and reviewed. This CT exam was performed using one or mo re of the following dose reduction techniques: automated exposure control, adjustment of the mA and /or kV according to patient size, and/or use of iterative reconstruction technique. COMPARISON: CT right hip without contrast. FINDINGS: Bones/joints: No acute fracture. No significant arthropathy. No joint effusion. No dislocation. Soft tissues: Gluteus medius tendinopathy with mild adjacent bursitis. IMPRESSION: Gluteus medius tendinopathy with mild adjacent bursitis. Electronically signed by: Juli Warner MD 02/21/2023 6:30 AM CDT Due to temporary technical issues with the PACS/Fluency reporting system, reports are being signed by the in house radiologists without review as a courtesy to insure prompt reporting. The interpreting radiologist is fully responsible for the content of the report.
--- NOTE | 2023-02-22 17:56 | RAD REPORT ---
EXAM DESCRIPTION: CT - Hip Right Wo Con - 02/21/2023 6:47 am CLINICAL HISTORY: The patient is 27 years old and is Male; pain TECHNIQUE: Axial computed tomography images of the right hip without intravenous contrast. Sagitta l and coronal reformatted images were created and reviewed. This CT exam was performed using one or more of the following dose reduction techniques: automated exposure control, adjustment of the mA and/or kV according to patient size, and/or use of iterative reconstruction technique. COMPARISON: No relevant prior studies available. FINDINGS: Bones/joints: No acute fracture visualized. No dislocation. Soft tissues: Gluteus medius tendinopathy with mild adjacent bursitis. IMPRESSION: 1. No acute fracture visualized. 2. Gluteus medius tendinopathy with mild adjacent bursitis. Electronically signed by: Juli Warner MD 02/21/2023 6:28 AM CDT Due to temporary technical issues with the PACS/Fluency reporting system, reports are being signed by the in house radiologists without review as a courtesy to insure prompt reporting. The interpreting radiologist is fully responsible for the content of the report.
--- NOTE | 2023-02-22 17:57 | RAD REPORT ---
EXAM DESCRIPTION: RAD - Hip Right 2 View - 02/21/2023 4:38 am CLINICAL HISTORY: The patient is 27 years old and is Male; PAIN Hip Right 2 View TECHNIQUE: Two views of the right hip with pelvis when performed. COMPARISON: No relevant prior studies available. FINDINGS: Bones/joints: No significant arthropathy. No acute fracture. No dislocation. Soft tissues: Unremarkable. IMPRESSION: No acute findings in the right hip. Electronically signed by: Juli Warner MD 02/21/2023 6:14 AM CDT Due to temporary technical issues with the PACS/Fluency reporting system, reports are being signed by the in house radiologists without review as a courtesy to insure prompt reporting. The interpreting radiologist is fully responsible for the content of the report.
== END 2023-02-21 07:32 | disposition home or self-care (01) ==
LOC: ER 03:29
DX: M76.01 Gluteal tendinitis, right hip (principal); M70.61 Trochanteric bursitis, right hip; D72.829 Elevated white blood cell count, unspecified; D64.9 Anemia, unspecified; R29.91 Unspecified symptoms and signs involving the musculoskeletal system
CPT/HCPCS: 36415; 73700; 73701; 80053; 85025; 86140; 96374; 96375; 99284; J1100; J7030; Q9967

== ENCOUNTER → 2023-09-07 | Emergency (ER) | payer SELFPAY ==
[~2023-09-07] MED LIST: IBUPROFEN 400 MG TAB ONE
--- OUTSIDE RECORDS SUMMARY | 2023-09-07 20:09 | XMS REPORT | Continuity of Care Document ---
Author Name Unknown Address [address] [place] [address] [facility] thconnect Address [address] [place] [address] Care Team Providers Care Nut Steamer Name Role Phone PCP, PATIENT DOES NOT HAVE A Primary Care Physic rai Unavailable ESPINOZA VIZCARRA Attending Clinician Unavail able KAPIL SCHNEIDER Attending Clinician Unavailable Kapil Hogan Attending Clinician [phone] LUDMILA BRENNAN Attending Clinician Unava LEN Patterson Attending Clinician Unavailable GRETCHEN ALICIA Attending Clinician Unavailable LAB90 Attending Clinician Unavailable Gretchen Daniel Attending Clinician [phone] KAPIL SCHNEIDER Admitting Clinician Unavailable Payers Payer Name Policy Type Policy Number Effective Date Expirati on Date Source [facility] [id number] 2015 00:00:00 M[employer]IPLAN-GPA/PPO 2 [id number] 2022 00:00:00 [facility] 2 [id number] 2021 00:00:00 Problems Condition Name Condition Details Condition Category Status Onset Date Resolution Date Last Treatment Date Treating Clinician Comments Source No known active problems No known active problems Disease Sarah Carter Allergies, Adverse Reactions, Alerts Allergy Name Allergy Type Status Severity Reaction(s) Onset Date Inactive Date Treating Clinician Comments Source NO KNOWN ALLERGIE S Drug Class Active [facility] Social History Social Habit Start Date Stop Date Quantity Comments Source History of tobacco use Cigarette Smoker Sarah Ghassan zepeda - External Exposure to SARS-CoV-2 (event) 2022-10-31 00:00:00 2022-11-10 14:54:00 Not sure [facility] Alcohol intake 2022-09-01 00:00:00 2022-09-01 00:00:00 Lifetime non-drinker (finding) Sarah Carter - Babak Cigarettes smoked current (pack per day) - Reported 2022-09-01 00:00:00 2022-09-01 00:00:00 Sarah Carter - Babak Sex Ass[birth year] At 1995 00:00:00 1995 00:00:00 [facility] Smoking Status Start Date Stop Date Source Tobacco smoking consumption unknown [facility] Ex-smoker 2022-09-01 00:00:00 2022-09-01 00:00:00 Sarah Carter - External Smokes tobacco daily 2021-08-08 00:00:00 Sarah Carter Medications Ordered Medication Name Filled Medication Name Start Date Stop Date Current Medication? Ordering Clinician Indication Dosage Frequency Signature (SIG) Comments Components Source albuterol 90 mcg/actuati on inhaler 11-10 00:00: 00 Yes [id number] 2{puff} Inhale 2 Puffs every 4 (four) hours as needed for Wheezing, Shortness of Breath or Chest tightness. [facility] ibuprofen 800 mg tablet 11-10 00:00: 00 Yes [id number] 800mg Take 1 tablet by mouth every 8 (eight) hours as needed for Pain (scale 4-6). [facility] Metformin HCl 500 MG oral Tablet 2021-07 00:00: 00 Yes [id number] 500mg Take 1 tablet (500 mg total) by mouth in the morning and 1 tablet (500 mg total) in the evening. Take with meals. Sarah Carter - Externa l Amoxicillin -Pot Clavulanate 875-125 MG oral Tablet 08-14 00:00: 09-01 00:00 :00 No [id number] 1{tbl} Take 1 tablet by mouth 2 times daily Sarah rendon Propranolol HCl 20 MG oral Tablet 08-08 00:00: 00 Yes [id number] 20mg Take 1 tablet (20 mg total) by mouth 3 times daily Sarah Carter Fluticasone -Salmeterol (Advair HFA) 45-21 MCG/ACT inhalation Aerosol 08-08 00:00: 00 Yes [id number] 2{puff} Inhale 2 puffs into the lungs 2 times daily Sarah Carter Bupropion HCL XL 150 MG OR TB24 08-08 00:00: 00 Yes [id number] 150mg Take 1 tablet (150 mg total) by mouth daily Sarah Carter Propranolol HCl 20 MG oral Tablet 08-08 00:00: 00 09-01 00:00 :00 No [id number] 20mg Take 1 tablet (20 mg total) by mouth 3 times daily Sarah rendon Fluticasone -Salmeterol (Advair HFA) 45-21 MCG/ACT inhalation Aerosol 08-08 00:00: 00 09-01 00:00 :00 No [id number] 2{puff} Inhale 2 puffs into the lungs 2 times daily Sarah rendon Bupropion HCL XL 150 MG OR TB24 08-08 00:00: 00 09-01 00:00 :00 No [id number] 150mg Take 1 tablet (150 mg total) by mouth daily Sarah rendon Azithromyci n 250 MG oral Tablet 08-08 00:00: 00 08-14 05:59 :00 No [id number] Take 2 tablets by mouth on day 1 then 1 tablet by mouth daily for 4 days thereafter . Sarah Carter Vital Signs Vital Name Observation Time Observation Value Comments Vicky dorado Systolic blood pressure 2022-11-10 19:55:00 141 mm[Hg] [facility] Diastolic blood pressure 2022-11-10 19:55:00 69 mm[Hg] [facility] Heart rate 2022-11-10 19:55:00 97 /min [facility] Body temperature 2022-11-10 19:55:00 37 [place] [facility] Respiratory rate 2022-11-10 19:55:00 16 /min [facility] Body height 2022-11-10 19:55:00 157.5 cm [facility] Body weight 2022-11-10 19:55:00 108.863 kg [facility] BMI 2022-11-10 19:55:00 43.90 kg/m2 [facility] Oxygen saturation in Arterial blood by Pulse oximetry 2022-11-10 19:55:00 96 /min [place] [facility] Systolic blood pressure 2022-09-01 14:21:00 110 mm[Hg] Sarah Seybo ld - External Diastolic blood pressure 2022-09-01 14:21:00 76 mm[Hg] Sarah Seybo ld - External Heart rate 2022-09-01 14:21:00 94 /min Kelse y Seybold - External Body temperature 2022-09-01 14:21:00 36.39 Iwona Sarah Seybold - External Respiratory rate 2022-09-01 14:21:00 15 /min Sarah Seybold - External Body height 2022-09-01 14:21:00 160 cm Daisy ey Seybold - External Body weight 2022-09-01 14:21:00 102.059 kg Daisy ey Seybold - External BMI 2022-09-01 14:21:00 39.86 kg/m2 Daisy ey Seybold - External Systolic blood pressure 2021-08-08 16:30:00 126 mm[Hg] Sarah Seybo ld Diastolic blood pressure 2021-08-08 16:30:00 86 mm[Hg] Sarah Seybo ld Heart rate 2021-08-08 16:30:00 102 /min Kelse y Seybold Body temperature 2021-08-08 16:30:00 36.72 Iwona Sarah Seybold Respiratory rate 2021-08-08 16:30:00 17 /min Sarah Seybold Body height 2021-08-08 16:30:00 157.5 cm Daisy ey Seybold Body weight 2021-08-08 16:30:00 103.239 kg Daisy Carter BMI 2021-08-08 16:30:00 41.63 kg/m2 Daisy Carter Procedures Procedure Date / Time Performed Performing Clinicia n Source ASSIGNMENT OF BENEFITS 2022-11-10 21:19:06 Docto r Unassigned, [place] [facility] XR CHEST 1 VW 2022-11-10 20:44:00 Kapil Schneider [facility] NOTICE OF PRIVACY PRACTICES 2022-11-10 19:42:02 Doctor Unassigned, [place] [facility] LIPID PANEL 2021-08-08 17:47:00 Gretchen Aliciabold CMP14+CBC/D/PLT+TSH W/RFLX 2021-08-08 17:47:00 Gretchen Alicia Encounters Start Date/Time End Date/Time Encounter Type Admission Type Attending Clinicians Care Facility Care Department Encounter ID Source 2022-11-26 00:00:00 2022-11-26 00:00:00 Outpatient ESPINOZA VIZCARRA [id number] Sarah Carter 2022-11-10 14:56:00 2022-11-10 16:59:00 Emergency X KAPIL SCHNEIDER [facility] ERT [id number] [facility] 2022-11-10 14:56:00 2022-11-10 16:59:00 Emergency Kapil Schneider [facility] [id number] [facility] 2022-11-10 00:00:00 2022-11-10 00:00:00 Outpatient LUDMILA BRENNAN [id number] Sarah Carter 2022-09-29 08:15:00 2022-09-29 08:15:00 Outpatient LUDMILA BRENNAN [id number] Sarah Carter 2022-09-23 00:00:00 2022-09-23 00:00:00 Outpatient ESPINOZA VIZCARRA SARAH NICHOLAS [id number] Sarah Carter 2022-09-19 09:00:00 2022-09-19 09:00:00 Outpatient LEN GARCIA SARAH NICHOLAS [id number] Sarah Quintanakatelyn 2022-09-19 00:00:00 2022-09-19 00:00:00 Outpatient ESPINOZA VIZCARRA SARAH NICHOLAS [id number] Sarah Quintanakatelyn 2022-09-19 00:00:00 2022-09-19 00:00:00 Outpatient ESPINOZA VIZCARRA SARAH NICHOLAS [id number] Sarah Quintanakatelyn 2022-09-18 00:00:00 2022-09-18 00:00:00 Outpatient GRETCHEN ALICIA SARAH NICHOLAS [id number] [facility] 2022-09-01 08:00:00 2022-09-01 08:00:00 Outpatient LUDMILA BRENNAN [id number] Sarah [facility] 2021-08-14 00:00:00 2021-08-14 00:00:00 Outpatient GRETCHEN ALICIA SARAH NICHOLAS [id number] [facility] 2021-08-11 00:00:00 2021-08-11 00:00:00 Outpatient GRETCHEN ALICIA SARAH NICHOLAS [id number] [facility] 2021-08-08 11:40:00 2021-08-08 11:40:00 Outpatient LAB90 SARAH NICHOLAS [id number] [facility] 2021-08-08 10:00:00 2021-08-08 11:00:00 Office Visit BryGretchen rendon [place] [id number] Sarah katelyn 2021-08-06 00:00:00 2021-08-06 00:00:00 Outpatient LUDMILA BRENNAN [id number] [facility] Results Test Description Test Time Test Comments Results Result Co mments Source Sarah CarterLIPMO [id number] 15:20:00* Test Item Value Reference Range Interpretation Comme nts CHOLESTEROL, TOTAL (test code = 2093-3) 184 mg/dL 100-199 TRIGLYCERIDES (test code = 2571-8) 104 mg/dL 0-149 HDL CHOLESTEROL (test code = 2085-9) 46 mg/dL >39 VLDL CHOLESTEROL CARMENCITA (test code = 37576-5) 19 mg/dL 5-40 LDL CHOL CALC (NIH) (test code = 73644-8) 119 mg/dL 0-99 H CHRIS (test code = CHRIS) [facility] results reported in Eastern Time. [facility] Clinical Information:[facility] Source of Specimen:Blood, venous*Venipunc Lab Interpretation (test code = 52593-6) Abnormal Sarah Carter
--- NOTE | 2023-09-07 21:14 | RAD REPORT ---
EXAM DESCRIPTION: RAD - Knee Right 3 View - 09/07/2023 9:03 pm CLINICAL HISTORY: Right knee pain FINDINGS: No fracture or dislocation is seen. No significant bone or joint abnormality seen. If the patient's pain persists follow up x-ray in 4 weeks would be recommended
--- NOTE | 2023-09-07 21:26 | EDPHYS ---
Physician Documentation [facility] Name: Patel Gray Age: 27 yrs Sex: Male : 1995 Arrival Date: 09/07/2023 Time: 20:06 Bed DX4 Private MD: ED Physician Raciel Kumar HPI: 09/07 20:30 This 27 yrs old Black Male presents to ER via Ambulatory with complaints of right knee cp pain. 20:30 The patient presents with pain, that is acute. cp 20:30 The complaints affect the right knee. Context: resulted from an unknown cause, the cp patient can fully bear weight, the patient is able to ambulate, with mild difficulty, Problem is a result from a previous injury: No. Onset: The symptoms/episode began/occurred yesterday, and became worse today. Modifying factors: the symptoms are aggravated by movement, weight bearing. Associated signs and symptoms: The patient has no apparent associated signs or symptoms. Historical: - Allergies: 20:23 No Known Allergies; jb4 - PMHx: 20:23 adhd; jb4 - PSHx: 20:23 left hand; jb4 - Immunization history:: Adult Immunizations up to date. - Social history:: Smoking status: Reported history of juuling and/or vaping. ROS: 20:33 MS/extremity: Positive for pain, tenderness, of the right knee, cp 20:33 Constitutional: Negative for body aches, chills, fever, cp 20:33 Abdomen/GI: Negative for abdominal pain, 20:33 Back: Negative for pain at rest, pain with movement, 20:33 Skin: Negative for cellulitis, rash, 20:33 Neuro: Negative for dizziness, headache, numbness, weakness, 20:33 All other systems are negative, Exam: 20:35 Constitutional: The patient appears in no acute distress, alert, awake, non-toxic, well cp developed, well nourished, overweight 20:35 Head/Face: Normocephalic, atraumatic. cp 20:35 Chest/axilla: Inspection: normal, 20:35 Cardiovascular: Rate: tachycardic, 20:35 Respiratory: the patient does not display signs of respiratory distress, Respirations: normal, no use of accessory muscles, no retractions, 20:35 Abdomen/GI: Exam negative for discomfort, distension, guarding, Inspection: abdomen appears normal, 20:35 Back: pain, is absent, ROM is normal, 20:35 Musculoskeletal/extremity: Joints: the right knee displays medial and lateral joint line tenderness, pain with passive ROM, minimal swelling noted, DVT Exam: no swelling, no tenderness, negative Homans' sign noted on exam, no erythema, no increased warmth, 20:35 Skin: cellulitis, is not appreciated, no rash present. Vital Signs: 20:20 BP 148 / 89; Pulse 114; Resp 16; Pulse Ox 95% on R/A; Weight 99.79 kg (R); Height 5 ft. jb4 2 in. (R); Pain 6/10; 20:20 Body Mass Index 40.24 (99.79 kg, 157.48 cm) jb4 20:20 Pain Scale: Adult jb4 MDM: 20:19 Patient medically screened. cp 20:40 Differential diagnosis: closed fracture, tendonitis, effusion. cp 21:25 Data reviewed: vital signs, nurses notes, radiologic studies, plain films. cp 21:25 I considered the following discharge prescriptions or medication management in the cp emergency department Medications were administered in the Emergency Department. See MAR. Independent interpretation of the following test(s) in the Emergency Department X-Ray: My interpretation is images of right knee negative for fracture. Counseling: I had a detailed discussion with the patient and/or guardian regarding the historical points, exam findings, and any diagnostic results supporting the discharge/admit diagnosis, radiology results, to return to the emergency department if symptoms worsen or persist or if there are any questions or concerns that arise at home. Response to treatment: the patient's symptoms have mildly improved after treatment, and as a result, I will discharge patient. 09/07 20:21 Order name: XRAY Knee RIGHT 3 view; Complete Time: 21:23 cp 09/07 21:23 Interpretation: Report reviewed. cp Administered Medications: 20:32 Drug: Ibuprofen PO 800 mg PO once Route: PO; jb4 21:33 Follow up: Response: No adverse reaction; Pain is decreased ap3 Disposition Summary: 09/07/23 21:25 Discharge Ordered Notes: Location: Home cp Problem: new cp Symptoms: have improved cp Condition: Stable cp Diagnosis - Pain in right knee cp Followup: cp - With: Otis Betancourt MD - When: 1 week - Reason: Recheck today's complaints Discharge Instructions: - Discharge Summary Sheet cp - Elastic Bandage and RICE Therapy cp - How to Use a Knee Brace cp - Acute Knee Pain, Adult cp Forms: - Family Work Release cp - Medication Reconciliation Form cp - Thank You Letter cp - Antibiotic Education cp - Prescription Opioid Use cp - Patient Portal Instructions cp - Leadership Thank You Letter cp Prescriptions: - Diclofenac Sodium 75 mg Oral Tablet Sustained Release - take 1 tablet ORAL route 2 times per day; 30 tablet; Refills: 0, Product cp Selection Permitted Signatures: Dispatcher [employer] EDTroy Nolan PA PA cp Stanislaw Riggins, RN RN jb4 Amy Casper RN ap3
--- NOTE | 2023-09-07 21:26 | ER ---
Nurse's Notes [facility] Name: Patel Gray Age: 27 yrs Sex: Male : 1995 Arrival Date: 09/07/2023 Time: 20:06 Bed DX4 Private MD: Diagnosis: Pain in right knee Presentation: 09/07 20:20 Chief complaint: Patient states: I started having right knee pain on Thursday. I tried to jb4 push through it but can't. I did not injure it to my knowledge. Coronavirus screen: At this time, the client does not indicate any symptoms associated with coronavirus-19. Ebola Screen: No symptoms or risks identified at this time. Initial Sepsis Screen: Does the patient meet any 2 criteria? No. Patient's initial sepsis screen is negative. Does the patient have a suspected source of infection? No. Patient's initial sepsis screen is negative. Risk Assessment: Do you want to hurt yourself or someone else? Patient reports no desire to harm self or others. Onset of symptoms was September 06, 2023. 20:20 Method Of Arrival: Ambulatory jb4 20:20 Acuity: SAMY 4 jb4 Historical: - Allergies: 20:23 No Known Allergies; jb4 - PMHx: 20:23 adhd; jb4 - PSHx: 20:23 left hand; jb4 - Immunization history:: Adult Immunizations up to date. - Social history:: Smoking status: Reported history of juuling and/or vaping. Screenin:31 [facility] ED Fall Risk Assessment (Adult) History of falling in the last 3 months, ap3 including since admission No falls in past 3 months (0 pts). Abuse screen: Denies threats or abuse. Nutritional screening: No deficits noted. Tuberculosis screening: No symptoms or risk factors identified. Assessment: 21:32 General: Appears in no apparent distress. Behavior is calm, cooperative, appropriate ap3 for age. Pain: Complains of pain in right knee. Neuro: Level of Consciousness is awake, alert, obeys commands, Oriented to person, place, time, situation, Appropriate for age. Cardiovascular: Patient's skin is warm and dry. Respiratory: Airway is patent Respiratory effort is even, unlabored, Respiratory pattern is regular, symmetrical. Vital Signs: 20:20 BP 148 / 89; Pulse 114; Resp 16; Pulse Ox 95% on R/A; Weight 99.79 kg (R); Height 5 ft. jb4 2 in. (R); Pain 6/10; 20:20 Body Mass Index 40.24 (99.79 kg, 157.48 cm) jb4 20:20 Pain Scale: Adult jb4 ED Course: 20:10 Patient arrived in ED. im 20:10 Troy Olvera PA is PHCP. cp 20:11 Raciel Kumar MD is Attending Physician. cp 20:23 Triage completed. jb4 20:23 Arm band placed on right wrist. jb4 21:05 XRAY Knee RIGHT 3 view In Process Unspecified. EDMS 21:25 Otis Betancourt MD is Referral Physician. cp 21:32 Provided Education on: discharge instructions. ap3 21:32 Patient has correct armband on for positive identification. ap3 21:32 No provider procedures requiring assistance completed. Patient did not have IV access ap3 during this emergency room visit. Administered Medications: 20:32 Drug: Ibuprofen PO 800 mg PO once Route: PO; jb4 21:33 Follow up: Response: No adverse reaction; Pain is decreased ap3 Medication: 21:32 VIS not applicable for this client. ap3 Outcome: 21:25 Discharge ordered by MD. cp 21:32 Discharged to home ambulatory, ap3 21:32 Condition: good 21:32 Discharge instructions given to patient, Instructed on discharge instructions, follow up and referral plans. medication usage, Demonstrated understanding of instructions, follow-up care, medications, Prescriptions given X 1, 21:33 Patient left the ED. ap3 Signatures: Dispatcher [employer] [facility] Troy Olvera PA PA cp Bryson, James, RN RN jb4 Amy Casper RN RN ap3 Ronna Fontaine im
[2023-09-07 21:51] VITALS: BP 148/89; O2SAT 95
== END ==
LOC: ER 20:06
DX: M25.561 Pain in right knee (principal)
CPT/HCPCS: 99283

== ENCOUNTER 2024-11-14 13:16 | Emergency (ER) | payer SELFPAY ==
[2024-11-14] MEDS ORDERED: NA CHLORIDE 0.9% 1,000 ML ONE (14:48)
[2024-11-14] MEDS ORDERED: ONDANSETRON 4 MG/2 ML VIAL ONE (14:48)
[2024-11-14] MEDS ORDERED: KETOROLAC 30 MG/ML INJ ONE (14:48)
[2024-11-14] MEDS ORDERED: FAMOTIDINE 20 MG/2 ML VIAL IV ONE (14:48)
[2024-11-14 15:14] LABS: Absolute Basophils 0.1 K/uL (0-0.5); Absolute Eosinophils 0.5 K/uL (0-0.5); Absolute Lymphocytes (CBC) 2.6 K/uL (0.7-4.9); Absolute Monocytes 1.3 K/uL (0.1-1.3); Absolute Neutrophil 5.8 K/uL (1.8-8.0); Basophils % 0.6 % (0-1.3); Eosinophils % 4.5 % (0-4.4); Hematocrit 39.9 % (39.6-49.0); Hemoglobin 13.2 g/dL (13.6-17.9); Lymphocytes % 25.3 % (15.3-44.8); MCH 26.1 pg (27.0-35.0); MCHC 33.1 g/dL (32.0-36.0); MCV 78.8 fL (80-100); MPV 7.1 fL (7.6-11.3); Monocytes % 12.6 % (3.3-12.3); Nucleated Red Blood Cells % 0.1 % (0-0); Platelets 454 thou/uL (152-406); RBC Red Blood Cell Count 5.06 M/uL (4.33-5.43); Red Cell Distribution Width 15.4 % (12.1-15.2)
[2024-11-14 15:31] LABS: Albumin 3.3 g/dL (3.4-5.0); Albumin/Globulin Ratio 0.7 (1.1-1.8); Bilirubin Total 0.3 mg/dL (0.2-1.0); Globulin 4.7 g/dL (2.3-3.5)
--- NOTE | 2024-11-14 15:50 | RAD REPORT ---
EXAMINATION: CT ABDOMEN AND PELVIS WITH CONTRAST CLINICAL INDICATION: Abdominal pain TECHNIQUE: CT abdomen and pelvis was performed, after the administration of 100 cc Isovue-300.. Sagit nelly and coronal reconstructions were obtained. One or more of the following dose reduction techniques were used: Automated exposure control, adjustment of the mA and kV according to patient si ze, and iterative reconstruction. Unless otherwise specified, incidental findings do not require dedicated imaging follow-up. [id number]. Oral contrast was not given which limits evaluation of bowel and appendix. COMPARISON: .None FINDINGS: Liver, spleen, pancreas, adrenals and kidneys appear unremarkable No evidence of diverticulitis. Normal appendix : IMPRESSION: No acute abnormality displayed
--- NOTE | 2024-11-14 16:31 | EDPHYS ---
Physician Documentation [facility] Name: Patel Gray Age: 28 yrs Sex: Male : 1995 Arrival Date: 11/14/2024 Time: 13:16 Bed 18 Private MD: ED Physician Brenton Silverman HPI: 11/14 13:44 This 28 yrs old Black Male presents to ER via Ambulatory with complaints of Abdominal sb4 Pain. 13:44 The patient presents with abdominal pain in the left upper quadrant, in the left lower sb4 quadrant. Onset: The symptoms/episode began/occurred 2 day(s) ago. The symptoms do not radiate. The symptoms are described as sharp. Modifying factors: The symptoms are alleviated by nothing, the symptoms are aggravated by nothing. 13:46 Associated signs and symptoms: Pertinent positives: frequent BMs, Pertinent negatives: sb4 nausea and vomiting, blood in stools. The patient has not experienced similar symptoms in the past. Historical: - Allergies: 13:41 No Known Allergies; ap3 - Home Meds: 13:41 None [Active]; ap3 - PMHx: 13:41 adhd; ap3 - Immunization history:: Client reports having NOT received the Covid vaccine. Flu vaccine is not up to date. - Infectious Disease History:: Denies. - Social history:: Smoking status: Reported history of juuling and/or vaping. ROS: 13:46 Constitutional: Negative for fever, chills, and weight loss, sb4 13:46 Abdomen/GI: Positive for abdominal pain, 13:46 All other systems are negative, Exam: 13:46 Constitutional: This is a well developed, well nourished patient who is awake, alert, sb4 and in no acute distress. Head/Face: Normocephalic, atraumatic. Eyes: Extra-ocular motions intact. Periorbital areas with no swelling, redness, or edema. ENT: Mucous membranes moist. Cardiovascular: Regular rate and rhythm with a normal S1 and S2. Respiratory: No increased work of breathing, no retractions or nasal flaring. Abdomen/GI: Soft, non-tender, no distension. Skin: Warm, dry with normal turgor. Normal color with no rashes, no lesions, and no evidence of cellulitis. Vital Signs: 13:39 Pulse 76; Resp 17; Temp 98.1; Pulse Ox 100% ; Weight 99.79 kg; Height 5 ft. 2 in. ; ap3 Pain 7/10; 13:44 BP 131 / 81; ap3 15:00 BP 121 / 82; Pulse 88; Resp 16; Pulse Ox 99% ; me1 16:00 BP 122 / 62; Pulse 67; Resp 15; Pulse Ox 99% ; me1 16:30 BP 113 / 58; Pulse 68; Resp 16; Temp 98.6; Pulse Ox 98% ; me1 13:39 Body Mass Index 40.24 (99.79 kg, 157.48 cm) ap3 13:39 Pain Scale: Adult ap3 MDM: 13:44 Medical Screening Exam initiated sb4 17:27 Data reviewed: vital signs, nurses notes, lab test result(s), radiologic studies, and sb4 as a result, I will discharge patient. Counseling: I had a detailed discussion with the patient and/or guardian regarding the historical points, exam findings, and any diagnostic results supporting the discharge/admit diagnosis, lab results, radiology results, the need for outpatient follow up, for definitive care, to return to the emergency department if symptoms worsen or persist or if there are any questions or concerns that arise at home. ED course: symptoms have improved. patient noted to be sleeping soundly, snoring, in no acute distress. advised bland diet for the next 48 hours. he is safe for discharge home. 11/14 13:44 Order name: CBC with Diff; Complete Time: 15:23 sb4 11/14 13:44 Order name: CMP; Complete Time: 15:32 sb4 11/14 13:44 Order name: Lipase; Complete Time: 15:32 sb4 11/14 13:44 Order name: CT Abd/Pelvis - IV Contrast Only; Complete Time: 16:11 sb4 11/14 13:44 Order name: IV Saline Lock; Complete Time: 15:09 sb4 11/14 13:44 Order name: Labs collected and sent; Complete Time: 15:09 sb4 11/14 16:11 Order name: PO challenge; Complete Time: 16:31 sb4 Administered Medications: 15:21 Drug: Famotidine IVP 20 mg IVP once; dilute with 10 mL 0.9% NaCl; give over 2 minutes me1 Route: IVP; Site: left forearm; 16:02 Follow up: Response: No adverse reaction me1 15:21 Drug: TORadol - Ketorolac IVP 15 mg IVP once Route: IVP; Site: left forearm; me1 16:03 Follow up: Response: No adverse reaction; Pain is decreased me1 15:21 Drug: Ondansetron IVP 4 mg IVP once; over 2 minutes Route: IVP; Site: left forearm; me1 16:02 Follow up: Response: No adverse reaction; Nausea is decreased me1 15:21 Drug: NS 0.9% IV 1000 ml IV at 1 bolus Per protocol; to be given as a bolus over 60 me1 minutes Route: IV; Rate: 1 bolus; Site: left forearm; 16:30 Follow up: Response: No adverse reaction; IV Status: Completed infusion; IV Intake: me1 1000ml Disposition: 17:16 Co-signature as Attending Physician, Brenton Silverman MD I reviewed the patient's care rn provided by the Advanced Practice Provider and agree with the diagnosis and treatment plan. Disposition Summary: 11/14/24 16:30 Discharge Ordered Notes: Location: Home sb4 Problem: new sb4 Symptoms: have improved sb4 Condition: Stable sb4 Diagnosis - Abdominal pain, unspecified sb4 Followup: sb4 - With: Private Physician - When: 1 week - Reason: Recheck today's complaints, Re-evaluation by your physician Discharge Instructions: - Discharge Summary Sheet sb4 - Abdominal Pain, Adult sb4 - Dickey Diet sb4 Forms: - Work release form sb4 - Patient Portal Instructions sb4 - Leadership Thank You Letter sb4 Signatures: Dispatcher [employer] Brenton Zelaya MD MD rn Prokisch, Amanda, RN RN ap3 Yamile Ferrara PA-C PA-C sb4 Kaity Mills RN RN me1 Corrections: (The following items were deleted from the chart) 13:46 13:44 Modifying factors: The symptoms are alleviated by nothing, the symptoms are sb4 aggravated by sb4
--- NOTE | 2024-11-14 16:31 | ER ---
Nurse's Notes [facility] Name: Patel Gray Age: 28 yrs Sex: Male : 1995 Arrival Date: 11/14/2024 Time: 13:16 Bed 18 Private MD: Diagnosis: Abdominal pain, unspecified Presentation: 11/14 13:39 Chief complaint: Patient states: he has been having abdominal pain that started ap3 Thursday. patient currently rates his pain as a 7/10 on the pain scale. patient denies any nausea or vomiting, but reports increased bowel movements. Coronavirus screen: At this time, the client does not indicate any symptoms associated with coronavirus-19. Ebola Screen: No symptoms or risks identified at this time. Initial Sepsis Screen: Does the patient meet any 2 criteria? No. Patient's initial sepsis screen is negative. Does the patient have a suspected source of infection? No. Patient's initial sepsis screen is negative. Risk Assessment: Do you want to hurt yourself or someone else? Patient reports no desire to harm self or others. Onset of symptoms was November 12, 2024. 13:39 Method Of Arrival: Ambulatory ap3 13:39 Acuity: SAMY 3 ap3 Triage Assessment: 13:41 General: Appears in no apparent distress. Behavior is calm, cooperative, appropriate ap3 for age. Pain: Complains of pain in abdomen Pain currently is 7 out of 10 on a pain scale. Pain began gradually. Neuro: Level of Consciousness is awake, alert, obeys commands, Oriented to person, place, time, situation. Cardiovascular: Patient's skin is warm and dry. Respiratory: Airway is patent Respiratory effort is even, unlabored, Respiratory pattern is regular, symmetrical. GI: Reports upper abdominal pain, increased bowel movements. Historical: - Allergies: 13:41 No Known Allergies; ap3 - Home Meds: 13:41 None [Active]; ap3 - PMHx: 13:41 adhd; ap3 - Immunization history:: Client reports having NOT received the Covid vaccine. Flu vaccine is not up to date. - Infectious Disease History:: Denies. - Social history:: Smoking status: Reported history of juuling and/or vaping. Screenin:42 [facility] ED Fall Risk Assessment (Adult) History of falling in the last 3 months, ap3 including since admission No falls in past 3 months (0 pts) Confusion or Disorientation No (0 pts) Intoxicated or Sedated No (0 pts) Impaired Gait No (0 pts) Mobility Assist Device Used No (0 pt) Altered Elimination No (0 pt) Score/Fall Risk Level 0 - 2 = Low Risk Oriented to surroundings, Maintained a safe environment, Educated pt \T\ family on fall prevention, incl call for assistance when getting out of bed, Assessed \T\ reinforced patient's understanding of fall precautions, Hourly rounding (assess needs \T\ fall precautionary measures) done, Used ambulatory aids as needed (educated on \T\ assisted with). Abuse screen: Denies threats or abuse. Nutritional screening: No deficits noted. Tuberculosis screening: No symptoms or risk factors identified. Assessment: 15:10 General: Appears uncomfortable, ill, well groomed, well developed, well nourished, me1 Behavior is calm, cooperative, appropriate for age, Reports left sided abdominal pain with increased number of looser stool. Pain 7/10. Pain: Complains of pain in abdomen Pain does not radiate. Pain currently is 7 out of 10 on a pain scale. Quality of pain is described as crampy, Pain began 2-3 days ago. Is continuous. Neuro: Level of Consciousness is awake, alert, obeys commands, Oriented to person, place, time, situation, Appropriate for age. Cardiovascular: Patient's skin is warm and dry. Respiratory: Airway is patent Respiratory effort is even, unlabored, Respiratory pattern is regular, symmetrical. GI: Abdomen is round Bowel sounds present X 4 quads. Abd is soft X 4 quads Reports diarrhea, Patient currently denies nausea, vomiting. : No signs and/or symptoms were reported regarding the genitourinary system. EENT: No signs and/or symptoms were reported regarding the EENT system. Derm: Skin is intact, is healthy with good turgor, Skin is pink, warm \T\ dry. Musculoskeletal: No signs and/or symptoms reported regarding the musculoskeletal system. Vital Signs: 13:39 Pulse 76; Resp 17; Temp 98.1; Pulse Ox 100% ; Weight 99.79 kg; Height 5 ft. 2 in. ; ap3 Pain 7/10; 13:44 BP 131 / 81; ap3 15:00 BP 121 / 82; Pulse 88; Resp 16; Pulse Ox 99% ; me1 16:00 BP 122 / 62; Pulse 67; Resp 15; Pulse Ox 99% ; me1 16:30 BP 113 / 58; Pulse 68; Resp 16; Temp 98.6; Pulse Ox 98% ; me1 13:39 Body Mass Index 40.24 (99.79 kg, 157.48 cm) ap3 13:39 Pain Scale: Adult ap3 ED Course: 13:18 Patient arrived in ED. im 13:20 Yamile Ferrara PA-C is PHCP. sb4 13:20 Brenton Silverman MD is Attending Physician. sb4 13:41 Triage completed. ap3 13:43 Arm band placed on right wrist. ap3 14:45 Missed attempt(s): 22 gauge in right forearm. Bleeding controlled, band aid applied, jl7 catheter tip intact. 14:46 Kaity Mills, TEJAS is Primary Nurse. me1 14:49 Missed attempt(s): 22 gauge in right antecubital area. Bleeding controlled, band aid jl7 applied, catheter tip intact. 14:52 Missed attempt(s): 22 gauge in right forearm. Bleeding controlled, band aid applied, jl7 catheter tip intact. 15:09 Initial lab(s) drawn, by me, sent to lab. Inserted saline lock: 22 gauge in left wrist, zm using aseptic technique. Blood collected. Flushed with 10 mL NS. 15:09 CBC with Diff Sent. zm 15:09 CMP Sent. zm 15:09 Lipase Sent. zm 15:10 Patient has correct armband on for positive identification. Bed in low position. Call me1 light in reach. Side rails up X2. Provided Education on: POC. Verbalized understanding.. Client placed on continuous cardiac and pulse oximetry monitoring. NIBP monitoring applied. Pulse ox on. NIBP on. 15:10 No provider procedures requiring assistance completed. me1 15:13 CT Abd/Pelvis - IV Contrast Only In Process Unspecified. EDMS 16:38 IV discontinued, intact, bleeding controlled, No redness/swelling at site. Pressure me1 dressing applied. Administered Medications: 15:21 Drug: Famotidine IVP 20 mg IVP once; dilute with 10 mL 0.9% NaCl; give over 2 minutes me1 Route: IVP; Site: left forearm; 16:02 Follow up: Response: No adverse reaction me1 15:21 Drug: TORadol - Ketorolac IVP 15 mg IVP once Route: IVP; Site: left forearm; me1 16:03 Follow up: Response: No adverse reaction; Pain is decreased me1 15:21 Drug: Ondansetron IVP 4 mg IVP once; over 2 minutes Route: IVP; Site: left forearm; me1 16:02 Follow up: Response: No adverse reaction; Nausea is decreased me1 15:21 Drug: NS 0.9% IV 1000 ml IV at 1 bolus Per protocol; to be given as a bolus over 60 me1 minutes Route: IV; Rate: 1 bolus; Site: left forearm; 16:30 Follow up: Response: No adverse reaction; IV Status: Completed infusion; IV Intake: me1 1000ml Medication: 15:10 VIS not applicable for this client. me1 Intake: 16:30 IV: 1000ml; Total: 1000ml. me1 Outcome: 16:30 Discharge ordered by MD. sb4 16:38 Discharged to home ambulatory, me1 16:38 Condition: stable 16:38 Discharge instructions given to patient, Instructed on discharge instructions, follow up and referral plans. Demonstrated understanding of instructions, follow-up care, 16:42 Patient left the ED. me1 Signatures: Dispatcher [employer] EDMS Kady Blakely RN RN jl7 Amy Casper RN RN [email or web address] Elva Whitfield Sophia, PA-C PA-C sb4 Ronna Fontaine Michelle, RN RN me1 Corrections: (The following items were deleted from the chart) 15:09 13:39 Chief complaint: Patient states: he has been having abdominal pain that started me1 Thursday. patient currently rates his pain as a 7/10 on the pain scale. patient denies any nausea or vomiting, but reports increased bowel movements. ap3
[2024-11-14 20:40] VITALS: BP 113/58; TEMP 98.6; O2SAT 98
== END 2024-11-14 16:42 | disposition home or self-care (01) ==
LOC: ER 13:16
DX: R10.12 Left upper quadrant pain (principal)
CPT/HCPCS: 36415; 74177; 80053; 83690; 85025; 96361; 96374; 96375; 99284; J2405; J7030; Q9967